=== PATIENT | female | born 1935 | race Caucasian/White ===

== ENCOUNTER → 2016-07-18 | Outpatient (CLI) | payer OTHER ==
[~2016-07-18] MED LIST: AMLO-114 PO; CALC600T9 PO; IMP/50 PO; LATA0.009 OPB; MAXZIDE PO; MECL1TAB40 PO; METO1TAB69 PO; MULTTAB58 PO; OMEP20TA PO; OXYB5TAB74 PO; PYRI100T4 PO
== END | disposition home or self-care (01) ==
LOC: C.LABSPEC 12:28
PROVIDERS: ATTEND Internal Medicine
DX: Z12.11 Encounter for screening for malignant neoplasm of colon (principal)

== ENCOUNTER → 2016-07-30 | Outpatient (CLI) | payer OTHER ==
[2016-07-30 13:00] LABS: BLOOD UREA NITROGEN 30 mg/dl (7-18); BUN/CREATININE RATIO 18.6 (10-20); CALCIUM 9.4 mg/dl (8.5-10.1); CARBON DIOXIDE 28 mmol/L (21-32); CHLORIDE 104 mmol/L (98-107); CHOLESTEROL 179 mg/dl (0-200); GLUCOSE 115 mg/dl (70-99); POTASSIUM 3.5 mmol/L (3.5-5.1); SODIUM 141 mmol/L (136-145); TRIGLYCERIDES 147 mg/dl (0-150); VERY LOW DENSITY LIPOPROT CALC 29 mg/dl
[2016-07-30 13:04] LABS: CHOLESTEROL/HDL RATIO 3.9; HDL CHOLESTEROL 46 mg/dl
[2016-07-30 13:12] LABS: ESTIMATED AVERAGE GLUCOSE 111 mg/dl; HA1C FLAG Normal (Normal)
== END | disposition home or self-care (01) ==
LOC: C.LABSPEC 12:14
PROVIDERS: ATTEND Internal Medicine
DX: I10 Essential (primary) hypertension (principal); E78.5 Hyperlipidemia, unspecified; R73.9 Hyperglycemia, unspecified; N18.9 Chronic kidney disease, unspecified

== ENCOUNTER → 2016-10-05 | Outpatient (CLI) | payer OTHER ==
[~2016-10-05] MED LIST changes: +DTR/5 PO; +METO100T44 PO; -METO1TAB69 PO; -OXYB5TAB74 PO
--- NOTE | 2016-10-06 07:55 | MAMMOGRAPHY REPORT ---
BILATERAL DIGITAL SCREENING MAMMOGRAM WITH CAD: 10/05/2016 CLINICAL HISTORY: Routine screening. Patient has no complaints. TECHNIQUE: Bilateral CC and MLO views were obtained. Current study was also evaluated with a Comput er Aided Detection (CAD) system. COMPARISON: Comparison is made to exams dated: 10/04/2015 mammogram, 09/26/2014 mammogram, 08/24/2013 mammogram, 08/11/2012 mammogram, 08/06/2011 mammogram, and 07/31/2010 mammogram - [facility]. BREAST COMPOSITION: The tissue of both breasts is almost entirely fatty. FINDINGS: There are mild to moderate vascular calcifications in the breasts. No suspicious mass, ar chitectural distortion or cluster of suspicious microcalcifications is seen. IMPRESSION: ACR BI-RADS CATEGORY 1: NEGATIVE There is no mammographic evidence of malignancy. A 1 year screening mammogram is recommended. The p atient will receive written notification of the results. Approximately 10% of breast cancers are not detected with mammography. A negative mammographic repor t should not delay biopsy if a clinically suggestive mass is present. Jacque Mcintosh M.D. ay/:10/05/2016 16:50:46 Delinquency Prevention Officer: Melanie DOHERTY(Amanda)(Bernabe), [facility] letter sent: Normal 1/2 BI-RADS Code: ACR BI-RADS Category 1: Negative
== END | disposition home or self-care (01) ==
LOC: C.MAMM 10:44
PROVIDERS: ATTEND Internal Medicine
DX: Z12.31 Encounter for screening mammogram for malignant neoplasm of breast (principal)

== ENCOUNTER → 2017-02-01 | Outpatient (CLI) | payer OTHER ==
[~2017-02-01] MED LIST changes: -DTR/5 PO; -METO100T44 PO; +METO1TAB69 PO; +OXYB5TAB74 PO
[2017-02-01 13:13] LABS: ALT/SGPT 22 U/L (12-78); AST/SGOT 17 U/L (15-37); BLOOD UREA NITROGEN 24 mg/dl (7-18); BUN/CREATININE RATIO 15.2 (10-20); CALCIUM 9.5 mg/dl (8.5-10.1); CARBON DIOXIDE 29 mmol/L (21-32); CHLORIDE 101 mmol/L (98-107); CHOLESTEROL 175 mg/dl (0-200); GLUCOSE 111 mg/dl (70-99); POTASSIUM 3.3 mmol/L (3.5-5.1); SODIUM 139 mmol/L (136-145); TRIGLYCERIDES 152 mg/dl (0-150); VERY LOW DENSITY LIPOPROT CALC 30 mg/dl
[2017-02-01 13:16] LABS: ALB/GLOB RATIO 1.1 (0.9-2); ALKALINE PHOSPHATASE 85 U/L (45-117); CHOLESTEROL/HDL RATIO 3.7; HDL CHOLESTEROL 47 mg/dl
[2017-02-01 18:34] LABS: ESTIMATED AVERAGE GLUCOSE 111 mg/dl; HA1C FLAG Normal (Normal)
== END | disposition home or self-care (01) ==
LOC: C.LABSPEC 12:28
PROVIDERS: ATTEND Internal Medicine
DX: I10 Essential (primary) hypertension (principal); E78.5 Hyperlipidemia, unspecified; R73.9 Hyperglycemia, unspecified

== ENCOUNTER → 2017-08-02 | Outpatient (CLI) | payer OTHER ==
[~2017-08-02] MED LIST changes: +DTR/5 PO; +METO100T44 PO; -METO1TAB69 PO; -OXYB5TAB74 PO
[2017-08-02 14:04] LABS: BASO % 0.7 %; BASO ABS # 0.05 K/uL (0-0.2); EOS % 5.7 %; EOS ABS # 0.42 K/uL (0-0.5); HEMATOCRIT 43.1 % (37-47); HEMOGLOBIN 14.6 g/dL (12.0-16.0); IG# 0.02 K/uL (0.00-0.02); LYMPH % 26.6 %; LYMPH ABS # 1.96 K/uL (1.2-3.4); MEAN CELL VOLUME 86.2 fL (80-100); MEAN CORPUSCULAR HEMOGLOBIN 29.2 pg (25-34); MEAN CORPUSCULAR HGB CONC 33.9 g/dl (32-36); MEAN PLATELET VOLUME 11.2 fL (7.4-10.4); MONO % 9.9 %; MONO ABS # 0.73 K/uL (0.11-0.59); NEUT % 56.8 %; PLATELET COUNT 281 K/uL (130-400); RED CELL DISTRIBUTION WIDTH CV 14.6 % (11.5-14.5); RED CELL DISTRIBUTION WIDTH SD 46.2 fL (36.4-46.3); WHITE BLOOD COUNT 7.38 K/uL (4.8-10.8)
[2017-08-02 14:26] LABS: ALBUMIN 3.8 gm/dl (3.4-5.0); ALT/SGPT 23 U/L (12-78); AST/SGOT 14 U/L (15-37); BLOOD UREA NITROGEN 30 mg/dl (7-18); CALCIUM 9.5 mg/dl (8.5-10.1); CARBON DIOXIDE 28 mmol/L (21-32); CHOLESTEROL 162 mg/dl (0-200); CREATININE 1.64 mg/dl (0.60-1.20); GLUCOSE 117 mg/dl (70-99); POTASSIUM 4.2 mmol/L (3.5-5.1); SODIUM 138 mmol/L (136-145)
[2017-08-02 14:29] LABS: ALKALINE PHOSPHATASE 96 U/L (45-117); LDL CHOLESTEROL (DIRECT) 96 mg/dl; TOTAL PROTEIN 7.6 gm/dl (6.4-8.2)
[2017-08-03 07:21] LABS: HEMOGLOBIN A1C 5.5 % (4.5-5.6)
== END | disposition home or self-care (01) ==
LOC: C.LABSPEC 12:47
PROVIDERS: ATTEND Internal Medicine
DX: M54.5 Low back pain (principal); R73.9 Hyperglycemia, unspecified; I10 Essential (primary) hypertension; E78.5 Hyperlipidemia, unspecified

== ENCOUNTER → 2017-08-02 | Outpatient (CLI) | payer OTHER ==
--- NOTE | 2017-08-02 11:48 | DIAGNOSTIC IMAGING REPORT ---
L-SPINE MIN 4 VIEWS ROUTINE HISTORY: Pain LOWER BACK PAIN, BILATERAL LEG PAIN COMPARISON: 06/17/2009 FINDINGS: Vertebral body stature is normal. Somewhat progressive degenerative disc change from L2 through S1. Several small vacuum discs are present. Slightly progressive reactive sclerosis of the vertebral endplates. Degenerative changes of posterior elements considered moderate. No evidence for subluxation. Findings consistent with an old fracture of the sacrococcygeal junction. No subluxation. IMPRESSION: 1. Rather significant degenerative intervertebral this changes from L2 through S1. 2. These findings are moderately progressive compared to the prior study 2009.. 3. No acute process. 4. Old fracture sacrococcygeal junction. The above report was generated using voice recognition software. It may contain grammatical, syntax or spelling errors. Electronically signed by: Bartolome Pretty M.D. 08/02/2017 11:46 AM Dictated Date/Time: 08/02/2017 11:44 AM
== END | disposition home or self-care (01) ==
LOC: C.RAD 10:57
PROVIDERS: ATTEND Internal Medicine
DX: M54.5 Low back pain (principal); M79.604 Pain in right leg; M79.605 Pain in left leg

== ENCOUNTER → 2017-10-06 | Outpatient (CLI) | payer OTHER ==
--- NOTE | 2017-10-06 14:23 | MAMMOGRAPHY REPORT ---
BILATERAL DIGITAL SCREENING MAMMOGRAM TOMOSYNTHESIS WITH CAD: 10/06/2017 CLINICAL HISTORY: Routine screening. Patient has no complaints. TECHNIQUE: Breast tomosynthesis in addition to standard 2D mammography was performed. Current study was also evaluated with a Computer Aided Detection (CAD) system. COMPARISON: Comparison is made to exams dated: 10/05/2016 mammogram, 10/04/2015 mammogram, 09/26/2014 m ammogram, 08/24/2013 mammogram, 08/11/2012 mammogram, and 08/06/2011 mammogram - [facility]. BREAST COMPOSITION: The tissue of both breasts is almost entirely fatty. FINDINGS: No suspicious masses, calcifications, or areas of architectural distortion are noted in ei ther breast. There has been no significant interval change compared to prior exams. Scattered bilater al benign-appearing calcifications are not significantly changed. IMPRESSION: ACR BI-RADS CATEGORY 2: BENIGN There is no mammographic evidence of malignancy. A 1 year screening mammogram is recommended. The pa tient will receive written notification of the results. Approximately 10% of breast cancers are not detected with mammography. A negative mammographic report should not delay biopsy if a clinically suggestive mass is present. Mari Osborne M.D. /:10/06/2017 11:35:45 Bed Bug Exterminator: Akanksha DOHERTY(Amanda)(M), [facility] letter sent: Normal 1/2 BI-RADS Code: ACR BI-RADS Category 2: Benign
== END | disposition home or self-care (01) ==
LOC: C.MAMM 10:53
PROVIDERS: ATTEND Internal Medicine
DX: Z12.31 Encounter for screening mammogram for malignant neoplasm of breast (principal)

== ENCOUNTER → 2017-12-02 | Outpatient (CLI) | payer OTHER ==
[~2017-12-02] MED LIST changes: +ACET-1256 PO; -AMLO-114 PO; +AMLO10TA3 PO; +ATROPINE SULFATE 0.1 MG/ML 10 ML SYR ONE; +DOBUTamine HCL 12.5 MG/ML 20 ML VIAL ONE; +LATA0.009 OP; -LATA0.009 OPB; -MAXZIDE PO; -MECL1TAB40 PO; +METOPROLOL TARTRATE 1 MG/ML VIAL ONE; +NAPR1TAB9 PO; +PERFLUTREN LIPID MICROSPHERE (DEFINITY) IV ONE; +RXC5 PO; +TRIA37.5 PO
--- NOTE | 2017-12-02 14:41 | DOBUTAMINE ECHO ---
*NOTICE TO RECEIVING LIBERTARIAN AGENCY This information is strictly Confidential and protected under [place] law. [place] law prohibits you from making any further disclosure of this information unless further disclosure is expressly permitted by the written consent of the person to whom it pertains or is authorized by law. A general authorization for the release of medical or other information is not sufficient for this purpose. Hospital accepts no responsibility if the information is made available to any other person, INCLUDING THE PATIENT. Interpretation Summary * Name: LIANG HANDY Study Date: 12/02/2017 10:53 AM BP: 142/77 mmHg * Patient Location: [facility] HR: 68 * : 1935 (M/d/yyyy) Gender: Female Height: 62 in * Age: 82 yrs Ethnicity: CA Weight: 185 lb * Ordering Physician: Caleb Bennett * Referring Physician: Caleb Bennett * Performed By: Nisha Jett RDCS * * Reason For Study: RUBIO, PRE-OP * BSA: 1.8 m2 * -- Conclusions -- * There is mild concentric left ventricular hypertrophy. * Grade I diastolic dysfunction, (abnormal relaxation pattern). * The left ventricular wall motion is normal at rest. * Normal dobutamine echocardiogram without evidence of inducible ischemia Procedure Details * DOBUTAMINE ECHO, CPT#[id number] * ECHO DOPPLER, CPT #[id number] * ECHO COLOR FLOW, CPT #[id number] * The study was technically difficult with many images being suboptimal in quality. * A contrast injection of Definity was performed to improve assessment of LV function. * Contrast was injected into an intravenous site in the left arm. * One vial of Definity ultrasound contrast was diluted in normal saline to a total volume of 10 ml. A total of '5' ml of solution was administered during imaging. * Lot # [id number] of Definity utilized for procedure. * Expiration date 10/02. * The attending nurse who injected the contrast agent was RONN ARTEAGA RN. Left Ventricular Findings with Stress * Normal dobutamine echocardiogram without evidence of inducible ischemia Left Ventricle * The left ventricle is grossly normal size. * There is mild concentric left ventricular hypertrophy. * Ejection Fraction = 60-65%. * Grade I diastolic dysfunction, (abnormal relaxation pattern). * The left ventricular wall motion is normal at rest. Right Ventricle * The right ventricle is grossly normal size. Atria * The left atrial size is normal. * Right atrial size is normal. Mitral Valve * The mitral valve is grossly normal. * Significant mitral regurgitation is absent. Tricuspid Valve * The tricuspid valve is not well visualized, but is grossly normal. * Significant tricuspid regurgitation is absent. Aortic Valve * The aortic valve is normal in structure and function. * No hemodynamically significant valvular aortic stenosis. * There is no significant aortic regurgitation. Pulmonic Valve * The pulmonic valve is not well visualized. Pericardium * There is no pericardial effusion. Stress Parameters * Normal baseline electrocardiogram. * Stress ECG: No ST changes. No arrhythmias. * Rest heart rate was '68' BPM. * Rest blood pressure was '142/77' * Maximum heart rate achieved was 130 bpm. * Maximum heart rate was 93 % of maximum age-predicted heart rate. * Maximum blood pressure was '159/46' * Total exercise time was '12:00' * Maximum Dobutamine infusion rate was '50' mcg/kg/min. * A total of 0.25 mg of intravenous Atropine was used to supplement Dobutamine for heart rate response. * Dobutamine infusion was terminated due to achieving target heart rate * A total of 5 mg of IV Metoprolol was administered to reverse Dobutamine-induced tachycardia. * The patient did not exhibit any symptoms during drug infusion. * Normal blood pressure response to exercise. * Target heart rate achieved. Left Ventricular Findings with Stress * Baseline EKG was normal There are no significant ST or T-wave changes with dobutamine infusion Baseline wall motion and ejection fraction were normal There was augmentation of all segments without development of regional wall motion abnormalities at peak dobutamine infusion Normal heart rate and blood pressure response to dobutamine MMode 2D Measurements and Calculations IVSd 1.7 cm IVSs 1.3 cm LVIDd 2.9 cm LVIDs 2.0 cm LVPWd 0.79 cm LVPWs 1.5 cm IVS/LVPW 2.2 FS 31.7 % EDV(Teich) 32.6 ml ESV(Teich) 12.6 ml EF(Teich) 61.4 % EDV(cubed) 24.8 ml ESV(cubed) 7.9 ml EF(cubed) 68.1 % % IVS thick -26.58 % % LVPW thick 89.4 % LV mass(C)d 114.8 grams LV mass(C)dI 62.1 grams/m\S\2 LV mass(C)s 84.6 grams LV mass(C)sI 45.8 grams/m\S\2 SV(Teich) 20.0 ml SI(Teich) 10.8 ml/m\S\2 SV(cubed) 16.9 ml SI(cubed) 9.1 ml/m\S\2 ACS 1.8 cm LA dimension 3.0 cm asc Aorta Diam 2.7 cm LVOT diam 1.5 cm LVOT area 1.9 cm\S\2 LVAd ap4 18.1 cm\S\2 LVLd ap4 6.8 cm EDV(MOD-sp4) 39.6 ml EDV(sp4-el) 41.3 ml LVAs ap4 9.7 cm\S\2 LVLs ap4 5.9 cm ESV(MOD-sp4) 13.7 ml ESV(sp4-el) 13.6 ml EF(MOD-sp4) 65.4 % EF(sp4-el) 67.1 % LVAd ap2 22.3 cm\S\2 LVLd ap2 6.6 cm EDV(MOD-sp2) 62.0 ml EDV(sp2-el) 63.9 ml LVAs ap2 12.0 cm\S\2 LVLs ap2 4.9 cm ESV(MOD-sp2) 23.8 ml ESV(sp2-el) 24.6 ml EF(MOD-sp2) 61.7 % EF(sp2-el) 61.5 % LVLd %diff -1.95 % EDV(MOD-bp) 49.8 ml LVLs %diff -19.34 % ESV(MOD-bp) 19.4 ml EF(MOD-bp) 61.0 % SV(MOD-sp4) 25.9 ml SI(MOD-sp4) 14.0 ml/m\S\2 SV(MOD-sp2) 38.2 ml SI(MOD-sp2) 20.7 ml/m\S\2 SV(MOD-bp) 30.4 ml SI(MOD-bp) 16.4 ml/m\S\2 SV(sp4-el) 27.7 ml SI(sp4-el) 15.0 ml/m\S\2 SV(sp2-el) 39.3 ml SI(sp2-el) 21.2 ml/m\S\2 Doppler Measurements and Calculations MV E max isidro 119.7 cm/sec MV A max isidro 129.4 cm/sec MV E/A 0.93 MV dec time 0.24 sec Ao V2 max 114.7 cm/sec Ao max PG 5.3 mmHg Ao max PG (full) 2.7 mmHg GABY(V,A) 1.3 cm\S\2 GABY(V,D) 1.3 cm\S\2 LV V1 max PG 2.6 mmHg LV V1 max 80.3 cm/sec PA V2 max 73.9 cm/sec PA max PG 2.2 mmHg
== END | disposition home or self-care (01) ==
LOC: C.CPL 10:08
PROVIDERS: ATTEND Internal Medicine
DX: R06.09 Other forms of dyspnea (principal); R94.31 Abnormal electrocardiogram [ECG] [EKG]

== ENCOUNTER 2017-12-08 11:28 | Inpatient (IN) | payer OTHER ==
[2017-11-09 14:08] VITALS: BMI 34.0
--- NOTE | 2017-11-23 14:59 | PAT Medication Instructions ---
Service Date Nov 23, 2017. Current Home Medication List Acetaminophen (Tylenol), 500 MG PO DAILY PRN for Pain Amlodipine (Norvasc), 10 MG PO QAM Calcium Carbonate-Vitamin D (Calcium + D), 1 TAB PO BID Imipramine (Tofranil), 50 MG PO HS Latanoprost (Xalatan 0.005% Oph Chanelle), 1 DROPS OP HS Metoprolol Succ (Toprol Xl) (Toprol-Xl ), 100 MG PO QAM Multiple Vitamin (Multivitamin), 1 TAB PO QAM Naproxen (Aleve), 220 MG PO DAILY PRN for Pain Omeprazole (Omeprazole), 20 MG PO QAM Oxybutynin Chloride (Ditropan), 5 MG PO BID Pyridoxine (Vitamin B6), 100 MG PO QAM Triamterene/Hctz (Dyazide 37.5MG/25MG), 1 TAB PO QAM Medication Instructions For Your Scheduled Surgery - Hold the following medications 7 days prior to surgery: Naproxen (Aleve), 220 MG PO DAILY PRN for Pain - Hold the following medications the morning of surgery: Multiple Vitamin (Multivitamin), 1 TAB PO QAM Oxybutynin Chloride (Ditropan), 5 MG PO BID Pyridoxine (Vitamin B6), 100 MG PO QAM Triamterene/Hctz (Dyazide 37.5MG/25MG), 1 TAB PO QAM - Take the following medications the morning of surgery with a sip of water: Acetaminophen (Tylenol), 500 MG PO DAILY PRN for Pain (if needed, may be taken up to four hours before surgery) Amlodipine (Norvasc), 10 MG PO QAM Metoprolol Succ (Toprol Xl) (Toprol-Xl ), 100 MG PO QAM Omeprazole (Omeprazole), 20 MG PO QAM - Take the following medications as scheduled the night before surgery: Acetaminophen (Tylenol), 500 MG PO DAILY PRN for Pain (if needed) Calcium Carbonate-Vitamin D (Calcium + D), 1 TAB PO BID Imipramine (Tofranil), 50 MG PO HS Latanoprost (Xalatan 0.005% Oph Chanelle), 1 DROPS OP HS *bring with you to the hospital Oxybutynin Chloride (Ditropan), 5 MG PO BID If you have any questions please call us at [phone] or [phone] or [phone]
[~2017-12-08] VITALS: Ht 157.5 cm; Wt 84.1 kg
[2017-12-08] VITALS (7 sets, daily range): BP systolic 107–177; BP diastolic 69–85; PULSE 62–81; TEMP 36.3–36.8; O2SAT 91–100; Ht 157.5 cm; Wt 84.1 kg
--- NOTE | 2017-12-08 09:54 | History & Physical Bridge Note ---
H&P Re-Evaluation Bridge Note: I have examined the patient, reviewed the History & Physical and in the interval since the performance of the History & Physical I have noted the following changes of clinical significance: No changes noted
--- NOTE | 2017-12-08 09:55 | History and Physical ---
History & Physical Date Dec 08, 2017. Chief Complaint Back and leg pain History of Present Illness The patient is a 82 year old female with complaints of back and leg pain Additional History Hepatic Disease: No Endocrine Disorder: No Kidney Disease: No Hypertension: Yes Heart Disease: No Bleeding Tendencies: No Infectious Diseases: No Allergies Coded Allergies: Tramadol (Verified Allergy, Severe, DIFFICULTY PAIN, SYNCOPE, PAIN IN CHEST, 11/09/17) Latex1 -Allergic Contact Dermititis (Verified Allergy, Unknown, RASH, BLISTERS, 11/09/17) Penicillins (Verified Allergy, Unknown, FAMILY HX, 11/09/17) Lisinopril (Verified Adverse Reaction, Intermediate, COUGH, 11/09/17) Home Medications Scheduled Amlodipine (Norvasc), 10 MG PO QAM Calcium Carbonate-Vitamin D (Calcium + D), 1 TAB PO BID Imipramine (Tofranil), 50 MG PO HS Latanoprost (Xalatan 0.005% Oph Chanelle), 1 DROPS OP HS Metoprolol Succ (Toprol Xl) (Toprol-Xl ), 100 MG PO QAM Multiple Vitamin (Multivitamin), 1 TAB PO QAM Omeprazole (Omeprazole), 20 MG PO QAM Oxybutynin Chloride (Ditropan), 5 MG PO BID Pyridoxine (Vitamin B6), 100 MG PO QAM Triamterene/Hctz (Dyazide 37.5MG/25MG), 1 TAB PO QAM Scheduled PRN Acetaminophen (Tylenol), 500 MG PO DAILY PRN for Pain Naproxen (Aleve), 220 MG PO DAILY PRN for Pain Physical Examination Skin: warm/dry, no rash Eyes: normal inspection, EOMI, sclerae normal ENT: normal ENT inspection, pharynx normal Head: normocephalic, atraumatic Neck: supple, no adenopathy, trachea midline Respiratory/Chest: lungs clear, normal breath sounds, no respiratory distress Cardiovascular: regular rate, rhythm, no edema, no murmur Abdomen / GI: normal bowel sounds, non tender Back: normal inspection Extremities: normal inspection, normal range of motion Neurologic/Psych: no motor/sensory deficits, alert, normal reflexes, oriented x 3 Diagnosis Lumbar spinal stenosis with neurogenic claudication Plan of Treatment Lumbar decompression and fusion L2-L5 with possible L5-S1
[~2017-12-08 11:28] MED LIST changes: +ACETAMINOPHEN 500 MG TAB PO SCH; -ATROPINE SULFATE 0.1 MG/ML 10 ML SYR ONE; +ATROPINE SULFATE 0.1 MG/ML 5ML SYR IV PRN; +CLINDAMYCIN IV 600 MG in DEXTROSE 5% ADD-VANTAGE 50ML 50 ML IV SCH; +CLINDAMYCIN PHOS 150 MG/ML 2 ML VIAL IV SCH; +CeleBREX 200 MG CAP PO SCH; -DOBUTamine HCL 12.5 MG/ML 20 ML VIAL ONE; +EpHEDrine SULFATE INJ 50 MG/ML AMP IV PRN; +FENTANYL CITRATE INJ 50 MCG/1 ML 2 ML VIAL IV PRN; +GABAPENTIN 300 MG CAP PO SCH; +HYDROmorphone INJ 0.5 MG/0.5 ML SYR IV PRN; +LACTATED RINGER'S 1000ML 1,000 ML IV SCH; -METOPROLOL TARTRATE 1 MG/ML VIAL ONE; +ONDANSETRON INJ 2 MG/ML 2 ML VIAL IV PRN; -PERFLUTREN LIPID MICROSPHERE (DEFINITY) IV ONE; +PHENYLEPHRINE 100MCG/ML 5ML SYR IV PRN; -RXC5 PO
[2017-12-08] MEDS ORDERED: FENTANYL CITRATE INJ 50 MCG/1 ML 2 ML VIAL ONE ×2 (11:29→14:54)
[2017-12-08] MEDS ORDERED: GLYCOPYRROLATE INJ 0.2 MG/ML VIAL ONE (11:30)
[2017-12-08] MEDS ORDERED: ROCURONIUM BROMIDE 10 MG/ML 5 ML VIAL ONE (11:30)
[2017-12-08] MEDS ORDERED: ONDANSETRON INJ 2 MG/ML 2 ML VIAL ONE (11:30)
[2017-12-08] MEDS ORDERED: PROPOFOL IV EMULSION 10 MG/ML 20 ML VIAL ONE (11:30)
[2017-12-08] MEDS ORDERED: NEOSTIGMINE METHYLSULFATE 1 MG/ML 10ML VIAL ONE (11:30)
[2017-12-08] MEDS ORDERED: LIDOCAINE HCL 2% 2 ML VIAL (20MG/ML) ONE (11:30)
[2017-12-08] MEDS ORDERED: DEXAMETHASONE SOD INJ 4 MG/ML VIAL ONE (11:30)
[2017-12-08] MEDS ORDERED: BACITRACIN 50000 UNIT VIAL ONE (12:38)
[2017-12-08] MEDS ORDERED: SODIUM CHLORIDE 0.9% PF 50 ML VIAL ONE (12:38)
[2017-12-08] MEDS ORDERED: BUPIVACAINE LIPOSOME 1/3% 266 MG/20 ML VIAL ONE (12:38)
[2017-12-08] MEDS ORDERED: BUPIVACAINE/EPINEPHRINE 0.5% MPF 1:200,000 30 ML VIAL ONE (12:38)
[2017-12-08] MEDS ORDERED: BUPIVACAINE 0.5 % 5 MG/1 ML PF 10ML VIAL ONE (12:38)
[2017-12-08] MEDS ORDERED: FLOSEAL HEMOSTATIC MATRIX 10ML TOP ONE (15:03)
--- NOTE | 2017-12-08 15:13 | [facility] Operative Report ---
Operative Report Operative Date Dec 08, 2017. Pre-Operative Diagnosis Lumbar spinal stenosis with neurogenic claudication Post-Operative Diagnosis Lumbar spinal stenosis with neurogenic claudication Procedure(s) Performed 1. Lumbar decompression medial facetectomy foraminotomy L2-3 L3-4 L4-5. #2 posterior spinal fusion L2-3 L3-4 L4-5. #3 placement posterior segmental instrumentation L2-3 L3-4 L4-5. #4 placement of local autograft in the posterior gutters. #5 placement of infuse collagen sponge combined with mass graft in the posterior lateral gutters. Surgeon Dr. Umana Lead Man Over All Dies In Pattern Shop Surgeon(s) Poonam Arshad Pa-C Estimated Blood Loss 250 Findings Severe spinal stenosis with herniated nucleus pulposus to 3 on the left Description of Procedure Patient was met with preoperatively case discussed all questions addressed. After informed consent obtained patient was taken to the operative suite underwent intubation placed in a prone position on the Jj table on top of the Da frame. All bony prominences well-padded eyes inspected to ensure no external pressure placed upon the. This point the lumbar spine was prepped and draped in normal sterile fashion. Sharp dissection with the assistance Bovie cautery was performed on down to and exposing the lamina and transverse processes of L2 L3-L4-L5 bilaterally. From a caudal to cephalad fashion complete laminectomy of L4 L3 and L2 is performed addressing severe lateral recess and foraminal disease. This also include partial discectomy of 2 3 on the left. At this complete pedicle screws were placed in L2 L3-L4-L5 bilaterally with the assistance of fluoroscopy and the purposes chapincito locked in position. I also placed a cross-link. Transverse processes of L2 L3-L4-L5 then burred to subcortical bleeding bone. Infuse collagen sponge master graft local autograft placed in posterior gutters. Approximately 100 cc of Exparel injected in the soft tissues and musculature. A 15 round [place] drain inserted. Incision then closed with 1 Vicryl fascia 2-0 Vicryl subtends a 4 Monocryl fashion closure Steri-Strips sterile dressings placed. Patient will continue PACU stable condition. Please note Poonam Devries was present throughout the entire procedure involved in patient positioning complex portions of the surgery and fashion closure. I attest to the content of the Intraoperative Record and any orders documented therein. Any exceptions are noted below.
[2017-12-08] MEDS ORDERED: ALUMINUM/MAGNESIUM SUSP 30 ML UDC PO PRN (15:15)
[2017-12-08] MEDS ORDERED: METOCLOPRAMIDE HCL INJ 5 MG/ML 2 ML VIAL IV PRN (15:15)
[2017-12-08] MEDS ORDERED: ACETAMINOPHEN IV 100 ML IV PRN (15:15)
[2017-12-08] MEDS ORDERED: hydrOXYzine HCL 25 MG TAB PO PRN (15:15)
[2017-12-08] MEDS ORDERED: FAMOTIDINE 20 MG TAB PO PRN (15:15)
[2017-12-08] MEDS ORDERED: PROMETHAZINE HCL INJ 12.5 MG in SODIUM CHLORIDE 0.9% 50ML 50 ML IV PRN (15:15)
[2017-12-08] MEDS ORDERED: DO NOT ADMINISTER PNEUMOCOCCAL VACCINE PRN (15:15)
[2017-12-08] MEDS ORDERED: BISACODYL 10 MG SUPP PR PRN (15:15)
[2017-12-08] MEDS ORDERED: NALOXONE HCL 0.4 MG/1 ML VIAL/CARP IV PRN (15:15)
[2017-12-08] MEDS ORDERED: MAGNESIUM HYDROXIDE SUSP 30 ML UDC PO PRN (15:15)
[2017-12-08] MEDS ORDERED: LORAZEPAM INJ 0.5 MG in SYRINGE 0 ML IV PRN (15:15)
[2017-12-08] MEDS ORDERED: ACETAMINOPHEN 500 MG TAB PO PRN (15:15)
[2017-12-08] MEDS ORDERED: SOD PHOSPHATE/SOD BIPHOSPHATE ENEMA 132 ML BTL PR PRN (15:15)
[2017-12-08] MEDS ORDERED: LORAZEPAM 0.5 MG TAB PO PRN (15:15)
[2017-12-08] MEDS ORDERED: DO NOT ADMINISTER FLU VACCINE PRN (15:15)
[2017-12-08] MEDS ORDERED: ONDANSETRON INJ 2 MG/ML 2 ML VIAL IV PRN (15:15)
--- NOTE | 2017-12-08 15:27 | DIAGNOSTIC IMAGING REPORT ---
INTRAOPERATIVE LUMBAR SPINE 3 VIEWS CLINICAL HISTORY: L2-5 DECOMPRESSION/FUSION COMPARISON STUDY: MRI performed September 2017 FINDINGS: 3 intraoperative fluoroscopic spot images are provided for interpretation. 17 seconds of fluoroscopic time was utilized. There are postsurgical changes of a spinal decompression and posterior pedicle screw fusion and fixation at the L2-L5 levels. There is a grade 1 spondylolisthesis of L3 on L4. IMPRESSION: Intraoperative fluoroscopic spot images reveal an L2 through L5 spinal decompression and fusion. Electronically signed by: Morales Bello M.D. 12/08/2017 3:25 PM Dictated Date/Time: 12/08/2017 3:24 PM
--- NOTE | 2017-12-08 16:31 | Anesthesiology Progress Note ---
Anesthesia Post Op Note Date & Time Dec 08, 2017 at 16:31 Vital Signs Pain Intensity: 0 Vital Signs Past 12 Hours Date Time Temp Pulse Resp B/P (MAP) Pulse Ox O2 Delivery O2 Flow Rate FiO2 12/08/17 16:15 36.2 64 14 147/78 100 Nasal Cannula 4 12/08/17 16:05 64 16 129/66 100 Nasal Cannula 4 12/08/17 15:55 66 13 131/66 100 Oxymask 10 12/08/17 15:45 73 15 127/81 100 Oxymask 10 12/08/17 15:39 36 78 15 103/72 100 Oxymask 10 12/08/17 12:07 36.8 81 20 177/85 95 Room Air Notes Mental Status: alert / awake / arousable, participated in evaluation Pt Amnestic to Procedure: Yes Nausea / Vomiting: adequately controlled Pain: adequately controlled Airway Patency, RR, SpO2: stable & adequate BP & HR: stable & adequate Hydration State: stable & adequate Anesthetic Complications: no major complications apparent
[2017-12-08] MEDS ORDERED: NURSING VERBAL MED ORDER ONE ×2 (17:15→21:30)
[2017-12-08] MEDS ORDERED: HYDROmorphone INJ 0.5 MG/0.5 ML SYR IV PRN (17:30)
--- NOTE | 2017-12-08 18:18 | Medical Consult ---
Consultation Date of Consultation: Dec 08, 2017. Attending Physician: Servando Umana D.O. History of Present Illness 82 yo female who is hospitalized after having multiple procedures done on her back. These included: -Lumbar decompression medial facetectomy foraminotomy L2-3 L3-4 L4-5. -posterior spinal fusion L2-3 L3-4 L4-5. -placement posterior segmental instrumentation L2-3 L3-4 L4-5. -placement of local autograft in the posterior gutters. placement of infuse collagen sponge combined with mass graft in the posterior lateral gutters. Patient reports feeling well and has no complaints. Past Medical/Surgical History Her medical problems include: 1. H/O Left and Right Cataract 2. Arterial hypertension. 3. Osteoarthritis. 4. Hypercholesterolemia. 5. Hyperglycemia. 6. Chronic kidney disease. 7. History of peptic ulcer disease. 8. Chronic tinnitus. 9. Umbilical hernia. 10. Chronic leg edema. Social History Smoking Status: Never Smoker Allergies Coded Allergies: Tramadol (Verified Allergy, Severe, DIFFICULTY PAIN, SYNCOPE, PAIN IN CHEST, 12/08/17) Latex1 -Allergic Contact Dermititis (Verified Allergy, Unknown, RASH, BLISTERS, 12/08/17) Penicillins (Verified Allergy, Unknown, FAMILY HX, 12/08/17) Lisinopril (Verified Adverse Reaction, Intermediate, COUGH, 12/08/17) Current Inpatient Medications Current Inpatient Medications Medications (Trade) Dose Ordered Sig/Eva Route Start Time Stop Time Status Last Admin Dose Admin Clindamycin Phosphate (Cleocin Iv) 600 mg PREOP IV 12/08/17 06:00 12/08/17 18:00 12/08/17 12:59 600 MG Lactated Ringer's 1,000 ml @ 15 mls/hr Q24H IV 12/08/17 06:00 12/09/17 05:59 12/08/17 12:50 15 MLS/HR Acetaminophen (Tylenol Tab) 1,000 mg PREOP PO 12/08/17 06:00 12/08/17 18:00 12/08/17 12:36 1,000 MG Celecoxib (CeleBREX CAP) 200 mg PREOP PO 12/08/17 06:00 12/08/17 18:00 12/08/17 12:35 200 MG Gabapentin (Neurontin Cap) 300 mg PREOP PO 12/08/17 06:00 12/08/17 18:00 12/08/17 12:35 300 MG Clindamycin Phosphate 600 mg/ Dextrose 50 ml @ 100 mls/hr PREOP IV 12/08/17 06:00 12/09/17 05:59 Clindamycin Phosphate 600 mg/ Dextrose 54 ml @ 100 mls/hr Q8H IV 12/08/17 22:00 12/09/17 06:33 Promethazine HCl 12.5 mg/Sodium Chloride 50.5 ml @ 202 mls/hr Q6H PRN IV 12/08/17 15:15 01/07/18 15:14 Ondansetron HCl (Zofran Inj) 4 mg Q6H PRN IV 12/08/17 15:15 01/07/18 15:14 Metoclopramide HCl (Reglan Inj) 10 mg Q6H PRN IV 12/08/17 15:15 01/07/18 15:14 Lorazepam (Ativan Tab) 0.5 mg Q8H PRN PO 12/08/17 15:15 01/07/18 15:14 Lorazepam 0.5 mg/ Syringe 0.25 ml @ 1 mls/min Q8H PRN IV 12/08/17 15:15 01/07/18 15:14 Pneumococcal Polysaccharide Vaccine 1 ea PRN PRN N/A 12/08/17 15:15 01/07/18 15:14 Influenza Virus Vacc Triv Types A&B 1 ea PRN PRN N/A 12/08/17 15:15 01/07/18 15:14 Polyethylene (Miralax Powder Packet) 17 gm Q6 PO 12/10/17 06:00 01/09/18 05:59 Bisacodyl (Dulcolax Supp) 10 mg DAILY PRN [place] 12/08/17 15:15 01/07/18 15:14 Magnesium Hydroxide (Milk Of Magnesia Susp) 30 ml DAILY PRN PO 12/08/17 15:15 01/07/18 15:14 Sodium Chloride 1,000 ml @ 150 mls/hr Q6H40M IV 12/08/17 17:00 01/07/18 16:59 Acetaminophen (Tylenol Tab) 1,000 mg Q8H PRN PO 12/08/17 15:15 01/07/18 15:14 Acetaminophen 100 ml @ 400 mls/hr Q8H PRN IV 12/08/17 15:15 01/07/18 15:14 Naloxone HCl (Narcan Inj) 0.1 mg Q5M PRN IV 12/08/17 15:15 01/07/18 15:14 Senna/Docusate Sodium (Senokot S Tab) 2 tab HS PO 12/08/17 21:00 01/07/18 20:59 Sodium Biphosphate/ Sodium Phosphate (Fleet Enema) 132 ml ONE PRN [place] 12/08/17 15:15 01/07/18 15:14 Hydroxyzine HCl (Vistaril Tab) 25 mg Q8H PRN PO 12/08/17 15:15 01/07/18 15:14 Al Hydroxide/Mg Hydroxide (Maalox Susp) 30 ml Q6H PRN PO 12/08/17 15:15 01/07/18 15:14 Famotidine (Pepcid Tab) 20 mg Q12 PRN PO 12/08/17 15:15 01/07/18 15:14 Diphenhydramine HCl (Benadryl Cap) 25 mg Q6H PRN PO 12/08/17 15:15 01/07/18 15:14 Amlodipine Besylate (Norvasc Tab) 10 mg QAM PO 12/09/17 09:00 01/08/18 08:59 Imipramine HCl (Tofranil Tab) 50 mg HS PO 12/08/17 21:00 01/07/18 20:59 Latanoprost (Xalatan Oph Soln) 1 drops HS OP 12/08/17 21:00 01/07/18 20:59 Metoprolol Succinate (Toprol Xl Tab) 100 mg QAM PO 12/09/17 09:00 01/08/18 08:59 Multivitamins (Multivitamin Tab) 1 tab QAM PO 12/09/17 09:00 01/08/18 08:59 Oxybutynin Chloride (Ditropan Tab) 5 mg BID PO 12/08/17 21:00 01/07/18 20:59 Triamterene/HCTZ (Dyazide 37.5/25 Mg Cap) 1 cap QAM PO 12/09/17 09:00 01/08/18 08:59 Pantoprazole Sodium (Protonix Tab) 40 mg QAM PO 12/09/17 09:00 01/08/18 08:59 Hydromorphone HCl (Dilaudid Inj) 0.5-1mg prn moder... Q3H PRN IV 12/08/17 17:30 12/22/17 17:29 Oxycodone HCl (Roxicodone Immediate Rel Tab) 5-10mg prn moderate to sev... Q4H PRN PO 12/08/17 17:30 12/22/17 17:29 Review of Systems Constitutional: No fever Eyes: No worsening of vision ENT: No hearing loss Respiratory: No cough Cardiovascular: No chest pain Abdomen: No pain Genitourinary - Female: No dysuria Neurologic: No paralysis Psychiatric: No depression symptoms Endocrine: No fatigue Hematologic / Lymphatic: No abnormal bleeding/bruising Integumentary: No rash Allergic / Immunologic: No environmental allergies Physical Exam Date Time Temp Pulse Resp B/P (MAP) Pulse Ox O2 Delivery O2 Flow Rate FiO2 12/08/17 17:30 36.3 62 16 111/69 (83) 97 Nasal Cannula 2.0 12/08/17 17:02 36.3 63 16 131/78 (95) 98 Nasal Cannula 2.0 12/08/17 16:30 100 Nasal Cannula 2.0 12/08/17 16:30 100 Nasal Cannula 2.0 12/08/17 16:30 36.4 64 16 124/80 (95) 100 Nasal Cannula 2.0 12/08/17 16:15 36.2 64 14 147/78 100 Nasal Cannula 4 12/08/17 16:05 64 16 129/66 100 Nasal Cannula 4 12/08/17 15:55 66 13 131/66 100 Oxymask 10 12/08/17 15:45 73 15 127/81 100 Oxymask 10 12/08/17 15:39 36 78 15 103/72 100 Oxymask 10 12/08/17 12:07 36.8 81 20 177/85 95 Room Air General Appearance: WD/WN Head: normocephalic Eyes: normal inspection ENT: normal ENT inspection Neck: supple Respiratory/Chest: chest non-tender, lungs clear Cardiovascular: regular rate, rhythm, no edema Abdomen/GI: normal bowel sounds, non tender, soft Extremities/Musculoskelatal: no pedal edema Neurologic/Psych: alert, oriented x 3 Skin: normal color Lymphatic: no adenopathy Assessment & Plan 82 yo female who is hospitalized for Lumbar decompression medial facetectomy foraminotomy L2-3 L3-4 L4-5 (and other procedures noted below). Consult was called for medical management. Essential hypertension. Patient hash/o hypertension. However, this is controlled Will continue home medicine. Patient will be on dyazide and amlodpine in AM Hyperglycemia with normal hemoglobin A1c. Last check in July. No need for insulin Chronic kidney disease stage IIIa, stable. will monitor BMP. Stress urinary incontinence continue home meds S/P -Lumbar decompression medial facetectomy foraminotomy L2-3 L3-4 L4-5. -posterior spinal fusion L2-3 L3-4 L4-5. -placement posterior segmental instrumentation L2-3 L3-4 L4-5. -placement of local autograft in the posterior gutters. placement of infuse collagen sponge combined with mass graft in the posterior lateral gutters. Pain management and discharged will be determined by primary service. Thank you for allowing us to management patient. Will continue to follow. May sign off in AM.
[2017-12-08] MEDS: OXYBUTYNIN CHLORIDE 5 MG TAB PO SCH (20:41)
[2017-12-08] MEDS: CLINDAMYCIN IV 600 MG in DEXTROSE 5% 50ML 50 ML IV SCH (20:41)
[2017-12-08] MEDS: LATANOPROST 0.005% OP SOLN 2.5 ML BTL OP SCH (20:41)
[2017-12-08] MEDS: SODIUM CHLORIDE 0.9% 1000ML 1,000 ML IV SCH (20:41)
[2017-12-08] MEDS: DOCUSATE SODIUM/SENNA 50/8.6MG TAB PO SCH (20:42)
[2017-12-08] MEDS: IMIPRAMINE HCL 25 MG TAB PO SCH (20:42)
[2017-12-08] MEDS ORDERED: IMIPRAMINE HCL 50 MG TAB PO SCH (21:00)
[2017-12-09] MEDS: SODIUM CHLORIDE 0.9% 1000ML 1,000 ML IV SCH (03:05)
[2017-12-09 03:10] VITALS: BP 124/77; PULSE 71; TEMP 36.5; O2SAT 92
[2017-12-09] MEDS ORDERED: NURSING DECISION MEDICATION ORDER SCH (05:15)
[2017-12-09 05:39] LABS: HEMOGLOBIN 10.4 g/dL (12.0-16.0); IG# 0.01 K/uL (0.00-0.02); LYMPH % 9.8 %; LYMPH ABS # 0.94 K/uL (1.2-3.4); MEAN CELL VOLUME 86.4 fL (80-100); MEAN CORPUSCULAR HGB CONC 33.5 g/dl (32-36); MEAN PLATELET VOLUME 9.5 fL (7.4-10.4); MONO % 8.2 %; MONO ABS # 0.79 K/uL (0.11-0.59); NEUT % 81.9 %; NEUT ABS # 7.84 K/uL (1.4-6.5); PLATELET COUNT 197 K/uL (130-400); RED CELL DISTRIBUTION WIDTH CV 15.2 % (11.5-14.5); RED CELL DISTRIBUTION WIDTH SD 47.9 fL (36.4-46.3); WHITE BLOOD COUNT 9.58 K/uL (4.8-10.8)
[2017-12-09] MEDS: CLINDAMYCIN IV 600 MG in DEXTROSE 5% 50ML 50 ML IV SCH (05:39)
[2017-12-09] MEDS ORDERED: OXYCODONE HCL IR 5 MG TAB (IMMEDIATE RELEASE) PO PRN (06:00)
[2017-12-09] MEDS ORDERED: HYDROmorphone INJ 0.5 MG/0.5 ML SYR IV PRN (06:00)
[2017-12-09 06:12] LABS: CALCIUM 8.3 mg/dl (8.5-10.1); CREATININE 1.29 mg/dl (0.60-1.20); POTASSIUM 3.6 mmol/L (3.5-5.1)
[2017-12-09 07:30] VITALS: BP 111/69; PULSE 72; TEMP 36.7; O2SAT 91
[2017-12-09] MEDS: PANTOprazole SOD 40 MG TAB PO SCH (08:44)
[2017-12-09] MEDS: METOPROLOL SUCC 50MG EXT REL TAB PO SCH (08:44)
[2017-12-09] MEDS: OXYBUTYNIN CHLORIDE 5 MG TAB PO SCH ×2 (08:44→21:23)
[2017-12-09] MEDS: TRIAMTERENE/HCTZ 37.5/25MG CAP PO SCH (08:44)
[2017-12-09] MEDS: AMLODIPINE BESYLATE 5 MG TAB PO SCH (08:45)
[2017-12-09] MEDS: MULTIVITAMIN TAB PO SCH (08:45)
--- NOTE | 2017-12-09 09:37 | Anesthesiology Progress Note ---
Anesthesia Post Op Note Date & Time Dec 09, 2017 at 09:37 Vital Signs Pain Intensity: 0 Vital Signs Past 12 Hours Date Time Temp Pulse Resp B/P (MAP) Pulse Ox O2 Delivery O2 Flow Rate FiO2 12/09/17 07:30 36.7 72 16 111/69 (83) 91 Room Air 12/09/17 07:23 Room Air 12/09/17 03:10 36.5 71 16 124/77 (93) 92 Room Air 12/08/17 23:25 Room Air 12/08/17 22:46 36.3 65 16 113/71 (85) 91 Room Air Notes Mental Status: alert / awake / arousable, participated in evaluation Pt Amnestic to Procedure: Yes Nausea / Vomiting: adequately controlled Pain: adequately controlled Airway Patency, RR, SpO2: stable & adequate BP & HR: stable & adequate Hydration State: stable & adequate Anesthetic Complications: no major complications apparent
[2017-12-09 11:25] VITALS: BP 118/75; PULSE 61; TEMP 36.7; O2SAT 93
--- NOTE | 2017-12-09 14:26 | Progress Note ---
Progress Note Date of Service Dec 09, 2017. Progress Note Back pain is controlled leg symptoms markedly improved vital signs stable [place] drain decreasing probably. On exam she is in the chair at bedside is good strength testing appears comfortable assessment status post lumbar depression fusion per plan at this time hoping for rehab significant placement the next day or so.
[2017-12-09 15:03] VITALS: BP 93/61; PULSE 75; TEMP 36.7; O2SAT 92
[2017-12-09] MEDS: ACETAMINOPHEN 500 MG TAB PO PRN ×2 (15:29→21:31)
[2017-12-09 15:30] VITALS: BP 114/72
--- NOTE | 2017-12-09 15:51 | Hospitalist Progress Note ---
Hospitalist Progress Note Date of Service Dec 09, 2017. Subjective Pt evaluation today including: conversation w/ patient, conversation w/ family , physical exam, chart review, lab review, review of studies, review of inpatient medication list Patient seen and evaluated. No acute events overnight. Patient is sitting in bedside chair. No complaints. Pain is controlled. Tolerating diet. States she required blood transfusion after her knee replacement. Currently Hgb stable but will monitor. Vitals stable. Renal function is better than baseline. Will continue to monitor. Constitutional: No fever, No chills Respiratory: No cough, No shortness of breath Cardiovascular: No chest pain Abdomen: No pain, No nausea, No vomiting, No diarrhea, No constipation Musculoskeletal: No swelling, No calf pain Female : No dysuria Heme: No abnormal bleeding/bruising Medications Current Inpatient Medications Medications (Trade) Dose Ordered Sig/Eva Route Start Time Stop Time Status Last Admin Dose Admin Promethazine HCl 12.5 mg/Sodium Chloride 50.5 ml @ 202 mls/hr Q6H PRN IV 12/08/17 15:15 01/07/18 15:14 Ondansetron HCl (Zofran Inj) 4 mg Q6H PRN IV 12/08/17 15:15 01/07/18 15:14 Metoclopramide HCl (Reglan Inj) 10 mg Q6H PRN IV 12/08/17 15:15 01/07/18 15:14 Lorazepam (Ativan Tab) 0.5 mg Q8H PRN PO 12/08/17 15:15 01/07/18 15:14 Lorazepam 0.5 mg/ Syringe 0.25 ml @ 1 mls/min Q8H PRN IV 12/08/17 15:15 01/07/18 15:14 Pneumococcal Polysaccharide Vaccine 1 ea PRN PRN N/A 12/08/17 15:15 01/07/18 15:14 Influenza Virus Vacc Triv Types A&B 1 ea PRN PRN N/A 12/08/17 15:15 01/07/18 15:14 Polyethylene (Miralax Powder Packet) 17 gm Q6 PO 12/10/17 06:00 01/09/18 05:59 Bisacodyl (Dulcolax Supp) 10 mg DAILY PRN [place] 12/08/17 15:15 01/07/18 15:14 Magnesium Hydroxide (Milk Of Magnesia Susp) 30 ml DAILY PRN PO 12/08/17 15:15 01/07/18 15:14 Acetaminophen (Tylenol Tab) 1,000 mg Q8H PRN PO 12/08/17 15:15 01/07/18 15:14 Acetaminophen 100 ml @ 400 mls/hr Q8H PRN IV 12/08/17 15:15 01/07/18 15:14 Naloxone HCl (Narcan Inj) 0.1 mg Q5M PRN IV 12/08/17 15:15 01/07/18 15:14 Senna/Docusate Sodium (Senokot S Tab) 2 tab HS PO 12/08/17 21:00 01/07/18 20:59 12/08/17 20:42 2 TAB Sodium Biphosphate/ Sodium Phosphate (Fleet Enema) 132 ml ONE PRN [place] 12/08/17 15:15 01/07/18 15:14 Hydroxyzine HCl (Vistaril Tab) 25 mg Q8H PRN PO 12/08/17 15:15 01/07/18 15:14 Al Hydroxide/Mg Hydroxide (Maalox Susp) 30 ml Q6H PRN PO 12/08/17 15:15 01/07/18 15:14 Famotidine (Pepcid Tab) 20 mg Q12 PRN PO 12/08/17 15:15 01/07/18 15:14 Diphenhydramine HCl (Benadryl Cap) 25 mg Q6H PRN PO 12/08/17 15:15 01/07/18 15:14 Amlodipine Besylate (Norvasc Tab) 10 mg QAM PO 12/09/17 09:00 01/08/18 08:59 12/09/17 08:45 10 MG Latanoprost (Xalatan Oph Soln) 1 drops HS OP 12/08/17 21:00 01/07/18 20:59 12/08/17 20:41 1 DROPS Metoprolol Succinate (Toprol Xl Tab) 100 mg QAM PO 12/09/17 09:00 01/08/18 08:59 12/09/17 08:44 100 MG Multivitamins (Multivitamin Tab) 1 tab QAM PO 12/09/17 09:00 01/08/18 08:59 12/09/17 08:45 1 TAB Oxybutynin Chloride (Ditropan Tab) 5 mg BID PO 12/08/17 21:00 01/07/18 20:59 12/09/17 08:44 5 MG Triamterene/HCTZ (Dyazide 37.5/25 Mg Cap) 1 cap QAM PO 12/09/17 09:00 01/08/18 08:59 12/09/17 08:44 1 CAP Pantoprazole Sodium (Protonix Tab) 40 mg QAM PO 12/09/17 09:00 01/08/18 08:59 12/09/17 08:44 40 MG Hydromorphone HCl (Dilaudid Inj) 0.5-1mg prn moder... Q3H PRN IV 12/08/17 17:30 12/22/17 17:29 Oxycodone HCl (Roxicodone Immediate Rel Tab) 5-10mg prn moderate to sev... Q4H PRN PO 12/08/17 17:30 12/22/17 17:29 Imipramine HCl (Tofranil Tab) 50 mg HS PO 12/08/17 21:00 01/07/18 20:59 12/08/17 20:42 50 MG Objective Vital Signs Date Time Temp Pulse Resp B/P (MAP) Pulse Ox O2 Delivery O2 Flow Rate FiO2 12/09/17 15:03 36.7 75 18 93/61 (72) 92 Room Air 12/09/17 11:25 36.7 61 16 118/75 (89) 93 Room Air 12/09/17 07:30 36.7 72 16 111/69 (83) 91 Room Air 12/09/17 07:23 Room Air 12/09/17 03:10 36.5 71 16 124/77 (93) 92 Room Air 12/08/17 23:25 Room Air 12/08/17 22:46 36.3 65 16 113/71 (85) 91 Room Air 12/08/17 19:30 36.4 69 16 107/72 (84) 98 Nasal Cannula 2.0 12/08/17 18:30 36.4 65 16 116/76 (89) 97 Nasal Cannula 2.0 12/08/17 17:30 36.3 62 16 111/69 (83) 97 Nasal Cannula 2.0 12/08/17 17:02 36.3 63 16 131/78 (95) 98 Nasal Cannula 2.0 12/08/17 16:30 100 Nasal Cannula 2.0 12/08/17 16:30 100 Nasal Cannula 2.0 12/08/17 16:30 36.4 64 16 124/80 (95) 100 Nasal Cannula 2.0 12/08/17 16:15 36.2 64 14 147/78 100 Nasal Cannula 4 12/08/17 16:05 64 16 129/66 100 Nasal Cannula 4 12/08/17 15:55 66 13 131/66 100 Oxymask 10 12/08/17 15:45 73 15 127/81 100 Oxymask 10 12/08/17 15:39 36 78 15 103/72 100 Oxymask 10 Physical Exam General Appearance: WD/WN, no apparent distress Eyes: sclerae normal ENT: hearing grossly normal Neck: supple, no JVD, trachea midline Respiratory/Chest: lungs clear, normal breath sounds, no respiratory distress, no accessory muscle use Cardiovascular: regular rate, rhythm Abdomen: normal bowel sounds, non tender, soft Extremities: no pedal edema, no calf tenderness Neurologic/Psychiatric: alert, oriented x 3 Skin: normal color, warm/dry Laboratory Results Last 24 Hours Test 12/09/17 05:27 White Blood Count 9.58 K/uL Red Blood Count 3.59 M/uL Hemoglobin 10.4 g/dL Hematocrit 31.0 % Mean Corpuscular Volume 86.4 fL Mean Corpuscular Hemoglobin 29.0 pg Mean Corpuscular Hemoglobin Concent 33.5 g/dl Platelet Count 197 K/uL Mean Platelet Volume 9.5 fL Neutrophils (%) (Auto) 81.9 % Lymphocytes (%) (Auto) 9.8 % Monocytes (%) (Auto) 8.2 % Eosinophils (%) (Auto) 0.0 % Basophils (%) (Auto) 0.0 % Neutrophils # (Auto) 7.84 K/uL Lymphocytes # (Auto) 0.94 K/uL Monocytes # (Auto) 0.79 K/uL Eosinophils # (Auto) 0.00 K/uL Basophils # (Auto) 0.00 K/uL RDW Standard Deviation 47.9 fL RDW Coefficient of Variation 15.2 % Immature Granulocyte % (Auto) 0.1 % Immature Granulocyte # (Auto) 0.01 K/uL Sodium Level 140 mmol/L Potassium Level 3.6 mmol/L Chloride Level 106 mmol/L Carbon Dioxide Level 26 mmol/L Anion Gap 8.0 mmol/L Blood Urea Nitrogen 22 mg/dl Creatinine 1.29 mg/dl Est Creatinine Clear Calc Drug Dose 34.4 ml/min Estimated GFR () 45.0 Estimated GFR (Non- 38.8 BUN/Creatinine Ratio 17.1 Random Glucose 131 mg/dl Calcium Level 8.3 mg/dl Assessment and Plan 82 yo female who is hospitalized for Lumbar decompression medial facetectomy foraminotomy L2-3 L3-4 L4-5 (and other procedures noted below). Consult was called for medical management. Lumbar Decompression/Fusion on 12/08: - Pain management, PT/OT, IVF, DVT Prophylaxis, Surgical Management per primary - Reports requiring blood transfusion with knee replacement - will monitor H&H - currently stable without need for intervention will watch HTN: STABLE - Norvasc 10 mg daily, Toprol XL 100 mg daily, Diazide 1 tab daily Reported H/O Hyperglycemia - Normal A1c: - A1c 5.5 - can monitor with daily labs - no intervention necessary CKD Stage III: STABLE - Baseline 1.6-1.7 - Currently better than baseline at 1.29 - making urine and has good output Chronic Stress Urinary Incontinence: - Oxybutynin 5 mg BID Hospitalists service will continue to monitor. Discharge planning: home
[2017-12-09] MEDS: LATANOPROST 0.005% OP SOLN 2.5 ML BTL OP SCH (21:23)
[2017-12-09] MEDS: IMIPRAMINE HCL 25 MG TAB PO SCH (21:23)
[2017-12-09] MEDS: DOCUSATE SODIUM/SENNA 50/8.6MG TAB PO SCH (21:23)
[2017-12-09 22:42] VITALS: BP 110/70; PULSE 65; TEMP 36.4; O2SAT 91
[2017-12-09] MEDS: OXYCODONE HCL IR 5 MG TAB (IMMEDIATE RELEASE) PO PRN (23:58)
[2017-12-10] MEDS: POLYETHYLENE (MIRALAX) 17 GM PACK PO SCH ×4 (05:51→23:27)
[2017-12-10 05:53] VITALS: BP 116/67; PULSE 69; TEMP 36.4; O2SAT 91
[2017-12-10 06:24] LABS: HEMATOCRIT 31.6 % (37-47); HEMOGLOBIN 10.4 g/dL (12.0-16.0); MEAN CELL VOLUME 88.3 fL (80-100); MEAN CORPUSCULAR HEMOGLOBIN 29.1 pg (25-34); MEAN CORPUSCULAR HGB CONC 32.9 g/dl (32-36); MEAN PLATELET VOLUME 9.8 fL (7.4-10.4); PLATELET COUNT 199 K/uL (130-400); RED CELL DISTRIBUTION WIDTH CV 15.5 % (11.5-14.5); RED CELL DISTRIBUTION WIDTH SD 50.3 fL (36.4-46.3); WHITE BLOOD COUNT 9.99 K/uL (4.8-10.8)
[2017-12-10 06:58] LABS: CALCIUM 8.5 mg/dl (8.5-10.1); CREATININE 1.39 mg/dl (0.60-1.20); POTASSIUM 3.8 mmol/L (3.5-5.1)
[2017-12-10] MEDS: TRIAMTERENE/HCTZ 37.5/25MG CAP PO SCH (07:38)
[2017-12-10] MEDS: OXYCODONE HCL IR 5 MG TAB (IMMEDIATE RELEASE) PO PRN ×4 (07:38→23:27)
[2017-12-10] MEDS: METOPROLOL SUCC 50MG EXT REL TAB PO SCH (07:38)
[2017-12-10] MEDS: OXYBUTYNIN CHLORIDE 5 MG TAB PO SCH ×2 (07:38→20:07)
[2017-12-10] MEDS: AMLODIPINE BESYLATE 5 MG TAB PO SCH (07:39)
[2017-12-10] MEDS: MULTIVITAMIN TAB PO SCH (09:58)
[2017-12-10] MEDS: PANTOprazole SOD 40 MG TAB PO SCH (09:58)
--- NOTE | 2017-12-10 13:16 | Progress Note ---
Progress Note Date of Service Dec 10, 2017. Progress Note Patient's back pain is controlled leg symptoms markedly improved. On exam she is in the chair at the bedside is good strength testing appears comfortable assessment status post lumbar decompression fusion per plan at this time she is going to continue physical therapy and look for discharge Wednesday to rehab.
--- NOTE | 2017-12-10 15:10 | Hospitalist Progress Note ---
Hospitalist Progress Note Date of Service Dec 10, 2017. Subjective Pt evaluation today including: conversation w/ patient, conversation w/ family , physical exam, chart review, lab review, review of inpatient medication list Patient seen and evaluated. No acute events overnight. Reports she is having more pain today compared to yesterday. Is planning on rehab prior to returning home. Hemoglobin is remaining stable. Cr slightly increased today but still better than baseline. Additional Comments: REVIEW OF SYSTEMS: Constitutional: No fever, No chills Respiratory: No cough, No shortness of breath Cardiovascular: No chest pain Abdomen: No pain, No nausea, No vomiting, No diarrhea, No constipation Musculoskeletal: No swelling, No calf pain, +back pain Female : No dysuria Heme: No abnormal bleeding/bruising Medications Current Inpatient Medications Medications (Trade) Dose Ordered Sig/Eva Route Start Time Stop Time Status Last Admin Dose Admin Promethazine HCl 12.5 mg/Sodium Chloride 50.5 ml @ 202 mls/hr Q6H PRN IV 12/08/17 15:15 01/07/18 15:14 Ondansetron HCl (Zofran Inj) 4 mg Q6H PRN IV 12/08/17 15:15 01/07/18 15:14 Metoclopramide HCl (Reglan Inj) 10 mg Q6H PRN IV 12/08/17 15:15 01/07/18 15:14 Lorazepam (Ativan Tab) 0.5 mg Q8H PRN PO 12/08/17 15:15 01/07/18 15:14 Lorazepam 0.5 mg/ Syringe 0.25 ml @ 1 mls/min Q8H PRN IV 12/08/17 15:15 01/07/18 15:14 Pneumococcal Polysaccharide Vaccine 1 ea PRN PRN N/A 12/08/17 15:15 01/07/18 15:14 Influenza Virus Vacc Triv Types A&B 1 ea PRN PRN N/A 12/08/17 15:15 01/07/18 15:14 Polyethylene (Miralax Powder Packet) 17 gm Q6 PO 12/10/17 06:00 01/09/18 05:59 12/10/17 12:01 17 GM Bisacodyl (Dulcolax Supp) 10 mg DAILY PRN [place] 12/08/17 15:15 01/07/18 15:14 Magnesium Hydroxide (Milk Of Magnesia Susp) 30 ml DAILY PRN PO 12/08/17 15:15 01/07/18 15:14 Acetaminophen (Tylenol Tab) 1,000 mg Q8H PRN PO 12/08/17 15:15 01/07/18 15:14 12/09/17 21:31 1,000 MG Acetaminophen 100 ml @ 400 mls/hr Q8H PRN IV 12/08/17 15:15 01/07/18 15:14 Naloxone HCl (Narcan Inj) 0.1 mg Q5M PRN IV 12/08/17 15:15 01/07/18 15:14 Senna/Docusate Sodium (Senokot S Tab) 2 tab HS PO 12/08/17 21:00 01/07/18 20:59 12/09/17 21:23 2 TAB Sodium Biphosphate/ Sodium Phosphate (Fleet Enema) 132 ml ONE PRN [place] 12/08/17 15:15 01/07/18 15:14 Hydroxyzine HCl (Vistaril Tab) 25 mg Q8H PRN PO 12/08/17 15:15 01/07/18 15:14 Al Hydroxide/Mg Hydroxide (Maalox Susp) 30 ml Q6H PRN PO 12/08/17 15:15 01/07/18 15:14 Famotidine (Pepcid Tab) 20 mg Q12 PRN PO 12/08/17 15:15 01/07/18 15:14 Diphenhydramine HCl (Benadryl Cap) 25 mg Q6H PRN PO 12/08/17 15:15 01/07/18 15:14 Amlodipine Besylate (Norvasc Tab) 10 mg QAM PO 12/09/17 09:00 01/08/18 08:59 12/10/17 07:39 10 MG Latanoprost (Xalatan Oph Soln) 1 drops HS OP 12/08/17 21:00 01/07/18 20:59 12/09/17 21:23 1 DROPS Metoprolol Succinate (Toprol Xl Tab) 100 mg QAM PO 12/09/17 09:00 01/08/18 08:59 12/10/17 07:38 100 MG Multivitamins (Multivitamin Tab) 1 tab QAM PO 12/09/17 09:00 01/08/18 08:59 12/09/17 08:45 1 TAB Oxybutynin Chloride (Ditropan Tab) 5 mg BID PO 12/08/17 21:00 01/07/18 20:59 12/10/17 07:38 5 MG Triamterene/HCTZ (Dyazide 37.5/25 Mg Cap) 1 cap QAM PO 12/09/17 09:00 01/08/18 08:59 12/10/17 07:38 1 CAP Pantoprazole Sodium (Protonix Tab) 40 mg QAM PO 12/09/17 09:00 01/08/18 08:59 12/09/17 08:44 40 MG Hydromorphone HCl (Dilaudid Inj) 0.5-1mg prn moder... Q3H PRN IV 12/08/17 17:30 12/22/17 17:29 Oxycodone HCl (Roxicodone Immediate Rel Tab) 5-10mg prn moderate to sev... Q4H PRN PO 12/08/17 17:30 12/22/17 17:29 12/10/17 12:00 10 MG Imipramine HCl (Tofranil Tab) 50 mg HS PO 12/08/17 21:00 01/07/18 20:59 12/09/17 21:23 50 MG Objective Vital Signs Date Time Temp Pulse Resp B/P (MAP) Pulse Ox O2 Delivery O2 Flow Rate FiO2 12/10/17 07:51 Room Air 12/10/17 05:53 36.4 69 17 116/67 (83) 91 Room Air 12/09/17 23:45 Room Air 12/09/17 22:42 36.4 65 15 110/70 (83) 91 Room Air 12/09/17 15:30 Room Air 12/09/17 15:30 114/72 (86) 12/09/17 15:03 36.7 75 18 93/61 (72) 92 Room Air Physical Exam Notes: PHYSICAL EXAMINATION: General Appearance: WD/WN, no apparent distress Eyes: sclerae normal ENT: hearing grossly normal Neck: supple, no JVD, trachea midline Respiratory/Chest: lungs clear, normal breath sounds, no respiratory distress, no accessory muscle use Cardiovascular: regular rate, rhythm Abdomen: normal bowel sounds, non tender, soft Extremities: no pedal edema, no calf tenderness Neurologic/Psychiatric: alert, oriented x 3 Skin: normal color, warm/dry Laboratory Results Last 24 Hours Test 12/10/17 06:03 White Blood Count 9.99 K/uL Red Blood Count 3.58 M/uL Hemoglobin 10.4 g/dL Hematocrit 31.6 % Mean Corpuscular Volume 88.3 fL Mean Corpuscular Hemoglobin 29.1 pg Mean Corpuscular Hemoglobin Concent 32.9 g/dl RDW Standard Deviation 50.3 fL RDW Coefficient of Variation 15.5 % Platelet Count 199 K/uL Mean Platelet Volume 9.8 fL Sodium Level 138 mmol/L Potassium Level 3.8 mmol/L Chloride Level 104 mmol/L Carbon Dioxide Level 28 mmol/L Anion Gap 7.0 mmol/L Blood Urea Nitrogen 23 mg/dl Creatinine 1.39 mg/dl Est Creatinine Clear Calc Drug Dose 31.9 ml/min Estimated GFR () 41.1 Estimated GFR (Non- 35.5 BUN/Creatinine Ratio 16.8 Random Glucose 105 mg/dl Calcium Level 8.5 mg/dl Assessment and Plan 82 yo female who is hospitalized for Lumbar decompression medial facetectomy foraminotomy L2-3 L3-4 L4-5 (and other procedures noted below). Consult was called for medical management. Lumbar Decompression/Fusion on 12/08: - Pain management, PT/OT, IVF, DVT Prophylaxis, Surgical Management per primary - Reports requiring blood transfusion with knee replacement - will monitor H&H - currently stable without need for intervention HTN: STABLE - Norvasc 10 mg daily, Toprol XL 100 mg daily, Dyazide 1 tab daily Reported H/O Hyperglycemia - Normal A1c: - A1c 5.5 - can monitor with daily labs - no intervention necessary CKD Stage III: STABLE - Baseline 1.6-1.7 - Currently better than baseline at 1.3 - making urine and has good output Chronic Stress Urinary Incontinence: - Oxybutynin 5 mg BID Hospitalists service will sign off at this time. Please contact if there is any questions/concerns. Continued [facility] stay due to: inadequate oral pain control, ambulation difficulties Discharge planning: intermediate facility
[2017-12-10 16:24] VITALS: BP 122/75; PULSE 64; TEMP 37; O2SAT 94
[2017-12-10] MEDS: LATANOPROST 0.005% OP SOLN 2.5 ML BTL OP SCH (20:07)
[2017-12-10] MEDS: DOCUSATE SODIUM/SENNA 50/8.6MG TAB PO SCH (20:07)
[2017-12-10] MEDS: IMIPRAMINE HCL 25 MG TAB PO SCH (20:07)
[2017-12-10 23:14] VITALS: BP 92/58; PULSE 72; TEMP 37.2; O2SAT 91
[2017-12-11] MEDS: POLYETHYLENE (MIRALAX) 17 GM PACK PO SCH ×3 (05:28→17:50)
[2017-12-11 06:02] VITALS: BP 116/76; PULSE 70; TEMP 36.8; O2SAT 92
[2017-12-11] MEDS: MULTIVITAMIN TAB PO SCH (07:35)
[2017-12-11] MEDS: PANTOprazole SOD 40 MG TAB PO SCH (07:36)
[2017-12-11] MEDS: OXYBUTYNIN CHLORIDE 5 MG TAB PO SCH ×2 (07:36→21:18)
[2017-12-11 07:39] VITALS: BP 104/67; PULSE 72
[2017-12-11] MEDS: AMLODIPINE BESYLATE 5 MG TAB PO SCH (07:41)
[2017-12-11] MEDS: METOPROLOL SUCC 50MG EXT REL TAB PO SCH (07:41)
[2017-12-11] MEDS: TRIAMTERENE/HCTZ 37.5/25MG CAP PO SCH (07:42)
[2017-12-11] MEDS ORDERED: RXC5 PO (08:22)
--- NOTE | 2017-12-11 08:23 | Discharge Instructions ---
Discharge Instructions Date of Service Dec 11, 2017. Admission Reason for Admission: Lumbar Spinal Stenosis Discharge Discharge Diagnosis / Problem: lumbar stenosis Discharge Goals Goal(s): Improve function Activity Recommendations Activity Limitations: per Instructions/Follow-up section . Instructions / Follow-Up Instructions / Follow-Up ACTIVITY RECOMMENDATIONS: SELF CARE INSTRUCTIONS AFTER THORACIC/LUMBAR FUSIONS 1. You may walk to your tolerance. It is good exercise for your legs and back. Expect some back and intermittent leg aches and pains. 2. You may perform "counter-top" level activities (make a sandwich, emmie with a project, etc.). 3. No bending or lifting of more than 10 pounds or back twisting of any nature (roll like a log when turning in bed). 4. You may ride in a car for 20-30 minutes at a time. No driving until after your first visit with your doctor. 5. Frequent changes of position and restricting sitting to 30 minutes at a time will help limit the amount of back spasms and stiffness you may experience. 6. You may discontinue the use of ambulatory aids (cane, crutches, etc.) once your strength and confidence allow. 7. You may brain picker the shower and let water strike your incision when you arrive home at least once daily. Do not take a tub bath, sit in a hot tub or go into a swimming pool until after your first recheck in the office. SPECIAL CARE INSTRUCTIONS: VERY IMPORTANT TO READ AND REVIEW A. Your surgical incision has been closed with a cosmetic suture under the skin that will dissolve in about 6 weeks. In 14 days, you can use a pair of clean scissors and cut the suture that is left outside of the skin at the ends of your incision. 1. The small skin tapes can be removed 7 days after surgery if they have not fallen off by that point. 2. You may keep the wound open to air as much as possible to promote healing after post-op day number 5 unless told otherwise by your doctor. 3. If you think the wound looks like it is becoming infected (redness or worsening drainage) and/or you are experiencing fever, chill or worsening back pain and muscle spasms, contact the office so that we may evaluate you as soon as possible. B. Complications are uncommon, but please contact us if you have any signs or symptoms of: 1. wound infection (fever higher than 102.5 degrees F, redness, separation of wound, drainage, or increasing pain from the incision) 2. blood clots in legs (pain, swelling, redness and warmth in legs) 3. urinary tract infection (fever higher than 102.5 degrees F, burning upon urination or increased frequency of urination) 4. nerve problems (inability to walk on your toes or heels, numbness, loss of bowel or bladder control) 5. any other symptoms that concern you C. Please call the office at if you have any concerns or questions about your operation or recovery. D. No smoking! Smoking drastically decreases the chance of a solid fusion. E. Do not take any anti-inflammatory medications (Indocin, Advil, Motrin, Aspirin, Naprosyn, etc.) as these may inhibit the chance of a solid fusion. Tylenol is okay to take for pain. MANAGING PAIN AFTER SPINAL SURGERY 1. Narcotic medication is intended for short-term use and will be provided for surgical pain. Surgical pain usually lasts for a period of 4-6 weeks. Narcotic medication includes Percocet, Vicodin, Darvocet, Tylenol #3 or Lortab. 2. Longer-term pain is more appropriately treated with non-narcotic medication such as Tylenol ES. 3. Muscle spasm is not appropriately treated with narcotics. Muscle relaxers such as Soma, Flexeril or Skelaxin can be used along with Tylenol ES. 4. Remember that we all live with some "aches and pains". This is not unusual or uncommon after an injury or as we get older. a. Back pain is expected and may include muscle spasms for 4 to 6 weeks after surgery. The pain should gradually improve. If the pain worsens for no apparent reason, please contact the office. b. Intermittent leg pain may also be experienced and should not be concerned about unless it worsens for no apparent reason. If so, please contact the office. 5. We will provide appropriate medication within the normal guidelines of their prescribed use. We will also be very cautious and aware of potential abuse and extended duration of patients' medication needs. a. Pain medications are for your comfort and to assist with sleep and rest so that the tissue can heal. They are not provided in order to return to normal activity and should not be used through the day. To do so or worsening pain at night can result from ongoing tissue damage and development of tolerance to the prescribed medicine. 6. Please allow 2-3 days to process refills. Prescriptions will not be mailed but must be picked up at the office. FOLLOW UP VISIT: Keep your scheduled follow-up appointment. Any questions, please call the office at . Current Hospital Diet Patient's current hospital diet: Regular Diet Discharge Diet Recommended Diet: Regular Diet Procedures Procedures Performed: 1. Lumbar decompression medial facetectomy foraminotomy L2-3 L3-4 L4-5.#2 posterior spinal fusion L2-3 L3-4 L4-5. #3 placement posteriorsegmental instrumentation L2-3 L3-4 L4-5. #4 placement of local autograftin the posterior gutters. #5 placement of infuse collagen sponge combinedwith mass graft in the posterior lateral gutters. Pending Studies Studies pending at discharge: no Medical Emergencies . Who to Call and When: Medical Emergencies: If at any time you feel your situation is an emergency, please call 911 immediately. . Non-Emergent Contact Non-Emergency issues call your: Primary Care Provider . "Provider Documentation" section prepared by Servando Umana. .
--- NOTE | 2017-12-11 08:56 | Progress Note ---
Progress Note Date of Service Dec 11, 2017. Progress Note Patient's back pain is controlled leg symptoms markedly improved. She is ambulating comfortably with a walker. Vital signs stable. On exam she is good strength testing. Assessment status post lumbar decompression fusion per plan at this time she is ready for discharge to rehab facility when bed available and we have received insurance approval. That can be as soon as today. I have made her discharge in case that occurs.
[2017-12-11] MEDS: OXYCODONE HCL IR 5 MG TAB (IMMEDIATE RELEASE) PO PRN ×3 (09:29→18:05)
[2017-12-11 15:24] VITALS: BP 107/68; PULSE 68; TEMP 36.7; O2SAT 95
[2017-12-11] MEDS: LATANOPROST 0.005% OP SOLN 2.5 ML BTL OP SCH (21:17)
[2017-12-11] MEDS: IMIPRAMINE HCL 25 MG TAB PO SCH (21:18)
[2017-12-11] MEDS: DOCUSATE SODIUM/SENNA 50/8.6MG TAB PO SCH (21:18)
[2017-12-11 23:14] VITALS: BP 121/83; PULSE 70; TEMP 36.7; O2SAT 92
[2017-12-12] MEDS: POLYETHYLENE (MIRALAX) 17 GM PACK PO SCH ×3 (00:17→12:00)
[2017-12-12 06:39] VITALS: BP 114/70; PULSE 91; TEMP 36.6; O2SAT 91
[2017-12-12] MEDS: OXYCODONE HCL IR 5 MG TAB (IMMEDIATE RELEASE) PO PRN ×2 (08:46→13:55)
[2017-12-12] MEDS: OXYBUTYNIN CHLORIDE 5 MG TAB PO SCH ×2 (08:47→21:19)
[2017-12-12] MEDS: MULTIVITAMIN TAB PO SCH (08:48)
[2017-12-12] MEDS: PANTOprazole SOD 40 MG TAB PO SCH (08:48)
[2017-12-12] MEDS: TRIAMTERENE/HCTZ 37.5/25MG CAP PO SCH (08:48)
[2017-12-12] MEDS: METOPROLOL SUCC 50MG EXT REL TAB PO SCH (08:49)
[2017-12-12] MEDS: AMLODIPINE BESYLATE 5 MG TAB PO SCH (08:49)
--- NOTE | 2017-12-12 10:50 | Progress Note ---
Progress Note Date of Service Dec 12, 2017. Progress Note Patient's back pain is controlled leg symptoms markedly improved vital signs stable. On exam she is in the chair at bedside is good strength testing is quite comfortable. Assessment status post lumbar decompression fusion per plan at this time she is scheduled for DC tomorrow to retirement.
[2017-12-12] MEDS ORDERED: NURSING VERBAL MED ORDER ONE (12:30)
[2017-12-12 15:29] VITALS: BP 113/72; PULSE 72; TEMP 36.6; O2SAT 95
[2017-12-12] MEDS: LATANOPROST 0.005% OP SOLN 2.5 ML BTL OP SCH (21:17)
[2017-12-12] MEDS: DOCUSATE SODIUM/SENNA 50/8.6MG TAB PO SCH (21:19)
[2017-12-12] MEDS: IMIPRAMINE HCL 25 MG TAB PO SCH (21:20)
[2017-12-12 22:57] VITALS: BP 115/73; PULSE 75; TEMP 36.5; O2SAT 93
[2017-12-13 06:41] VITALS: BP 92/67; PULSE 74; TEMP 36.9; O2SAT 94
[2017-12-13] MEDS: MULTIVITAMIN TAB PO SCH (07:29)
[2017-12-13] MEDS: OXYBUTYNIN CHLORIDE 5 MG TAB PO SCH (07:29)
[2017-12-13] MEDS: TRIAMTERENE/HCTZ 37.5/25MG CAP PO SCH (07:29)
[2017-12-13] MEDS: PANTOprazole SOD 40 MG TAB PO SCH (07:30)
[2017-12-13] MEDS: AMLODIPINE BESYLATE 5 MG TAB PO SCH (07:30)
[2017-12-13] MEDS: METOPROLOL SUCC 50MG EXT REL TAB PO SCH (07:30)
[2017-12-13 08:54] VITALS: BP 92/67; PULSE 74; TEMP 36.9; O2SAT 94
[2017-12-13] MEDS: OXYCODONE HCL IR 5 MG TAB (IMMEDIATE RELEASE) PO PRN (09:19)
[2017-12-13 09:24] VITALS: BP 92/67; PULSE 74; TEMP 36.9; O2SAT 94
--- NOTE | 2017-12-13 15:53 | Discharge Summary ---
Orthopedic Discharge Summary Admission Date/Reason Dec 08, 2017 at 12:55 Lumbar Spinal Stenosis. Discharge Date/Disposition Dec 13, 2017 detention facility Diagnosis Principal Diagnosis: Severe multilevel spinal stenosis Admission Physical Exam As per Admitting History & Physical. Hospital Course Patient underwent lumbar decompression fusion tolerated this well was taken to the orthopedic floor postoperatively. Postop day #1 she was up and ambulatory progress the postop day #2 postop day #3 was approved for rehab facility however they were not able to accept her through the end of the weekend. Subsequently she stayed with us throughout the weekend working with therapy improving on a daily basis. She was subsequently discharged home on Wednesday. Discharge orders and instructions can be found chart for further review. Discharge Instructions Please refer to the electronic Patient Visit Report (Discharge Instructions) for additional information.
== END 2017-12-13 14:21 | DRG 460 ==
LOC: C.ACU 11:28 → C.3E 12:55 → ENRESERV 16:05
PROVIDERS: ADMIT Orthopaedic Surgery Orthopaedic Surgery of the Spine; ATTEND Orthopaedic Surgery Orthopaedic Surgery of the Spine
PROC: 3E0U0GB Introduction of Recombinant Bone Morphogenetic Protein into Joints, Open Approach (ICD-10-PCS; principal; 2017-12-08 13:45)
PROC: 0SG1071 Fusion of 2 or more Lumbar Vertebral Joints with Autologous Tissue Substitute, Posterior Approach, Posterior Column, Open Approach (ICD-10-PCS; principal; 2017-12-08 13:45)
DX: M48.062 Spinal stenosis, lumbar region with neurogenic claudication (principal); M48.061 Spinal stenosis, lumbar region without neurogenic claudication; Z88.5 Allergy status to narcotic agent; Z88.0 Allergy status to penicillin; Z88.8 Allergy status to other drugs, medicaments and biological substances; Z91.040 Latex allergy status; I12.9 Hypertensive chronic kidney disease with stage 1 through stage 4 chronic kidney disease, or unspecified chronic kidney disease; E78.5 Hyperlipidemia, unspecified; N18.9 Chronic kidney disease, unspecified; R73.9 Hyperglycemia, unspecified; N39.3 Stress incontinence (female) (male)

== ENCOUNTER 2021-10-09 06:52 | Observation (INO) ==
--- NOTE | 2021-10-06 15:51 | Anesthesiology Consultation ---
Date of Service October 06, 2021 Assessment & Plan (1) Encounter for pre-operative examination: - COVID screening: Per assessment on 10/02: No known COVID-19 positive contacts or current COVID-19 related symptoms. Travel screen negative. Patient vaccinated. Surgeon arranging preop COVID testing. Awaiting results. - S/P L2-L5 decompression/fusion (12/08/17): Grade 2 view, MAC#3, ETT 7.5 at [facility]. No issues per post-op anesthesia progress notes. Chart Review Chart Review: Acceptable Risk for Surgery (pending evaluation AM DOS) and Patient NOT seen in Pre Admission Testing History Surgery Operation Date: 10/09/21 09:45 Proposed Procedures p Open Repair Incarcerated Umbilical and - Morro Power MD, FACS s Incisional Hernia with Mesh - Morro Power MD, FACS Height/Weight Height: 5 ft 1 in Weight: 80.286 kg Allergies Allergy/AdvReac Type Severity Reaction Status Date / Time tramadol Allergy Severe Chest Verified 10/06/21 15:46 pain, syncope, "difficulty pain" latex Allergy Unknown Rash, Verified 10/06/21 15:46 blisters Penicillins Allergy Unknown FAMILY HX Verified 10/06/21 15:46 (NEVER TAKEN) lisinopril AdvReac Intermediate Cough Verified 10/06/21 15:46 Medications Home Medications Medication Instructions Recorded Confirmed Last Taken amlodipine 10 mg tablet 10 mg PO QAM 07/22/21 10/02/21 Unknown calcium carbonate 600 mg-vitamin 1 tab PO BID 07/22/21 10/02/21 Unknown D3 10 mcg (400 unit) tablet (Calcium with Vitamin D) duloxetine 60 mg capsule,delayed 60 mg PO HS 07/22/21 10/02/21 Unknown release latanoprost 0.005 % eye drops 1 drp OPHTHALMIC (EYE) QA 07/22/21 10/02/21 Unknown levothyroxine 75 mcg capsule 75 mcg PO QAM 07/22/21 10/02/21 Unknown meloxicam 7.5 mg tablet 7.5 mg PO QAM 07/22/21 10/02/21 Unknown metoprolol tartrate 100 mg tablet 100 mg PO QAM 07/22/21 10/02/21 Unknown multivitamin (Daily Multi-Vitamin) 1 tab PO QAM 07/22/21 10/02/21 Unknown omeprazole 20 mg capsule,delayed 20 mg PO QAM 07/22/21 10/02/21 Unknown release oxybutynin chloride 5 mg tablet 5 mg PO BID 07/22/21 10/02/21 Unknown triamterene 37.5 1 tab PO QAM 07/22/21 10/02/21 Unknown mg-hydrochlorothiazide 25 mg tablet Past Medical History Medical History Chronic kidney disease GERD (gastroesophageal reflux disease) Hypertension Hypothyroidism Past Family History Family History Mother Breast cancer Diabetes Hypertension Father Cancer Diabetes Hypertension Sister Diabetes Hypertension Past Surgical History Surgical History History of back surgery (12/08/17) Compression/fusion History of bilateral tubal ligation History of cataract surgery (~2015) History of Shahrzad fundoplication (03/13/05) Laparoscopic Shahrzad fundoplication, repair of paraesophagealhernia, and cholecystectomy. Dr. Power and Dr. Lanier Hx of hysterectomy (12/26/04) Total abdominal hysterectomy, bilateral salpingo-oopherectomy S/P carpal tunnel release R/L S/P knee replacement Social History Smoking Status: Never smoker Do You Dip or Chew Tobacco: No Hx Alcohol Use: No Hx Substance Use: No substance use type: does not use Lab Results Anesthesia Preop Results Results Anesthesia Widget: WBC 7.36 K/uL (4.8-10.8) 10/02/21 Hgb 13.2 g/dL (12.0-16.0) 10/02/21 Hct 39.8 % (37-47) 10/02/21 Plt 301 K/uL (130-400) 10/02/21 Na 138 mmol/L (136-145) 10/02/21 K 3.9 mmol/L (3.5-5.1) 10/02/21 Cl 100 mmol/L (98-107) 10/02/21 CO2 30 mmol/L (21-32) 10/02/21 BUN 27 mg/dl (6-23) H 10/02/21 Creat 1.34 mg/dl (0.6-1.2) H 10/02/21 Glucose Level 92 mg/dl (70-99(Fasting)) 10/02/21 Testing Electrocardiogram Date: 10/06/21 NSR at 62bpm. LAD. Possible anterolateral infarct, age undetermined. Chest X-Ray Date: 10/06/21 No lines and tubes are seen. Calcified aortic knob is seen. The lungs are clear. No evidence of pleural effusion or pneumothorax. Degenerative changes in the spine. Posterior fixation hardware is noted. IMPRESSION: No acute chest disease.
[~2021-10-09 06:52] MED LIST changes: -ACET-1256 PO; -ACETAMINOPHEN 500 MG TAB PO SCH; -AMLO10TA3 PO; -ATROPINE SULFATE 0.1 MG/ML 5ML SYR IV PRN; -CALC600T9 PO; -CLINDAMYCIN IV 600 MG in DEXTROSE 5% ADD-VANTAGE 50ML 50 ML IV SCH; -CLINDAMYCIN PHOS 150 MG/ML 2 ML VIAL IV SCH; -CeleBREX 200 MG CAP PO SCH; -DTR/5 PO; -EpHEDrine SULFATE INJ 50 MG/ML AMP IV PRN; -FENTANYL CITRATE INJ 50 MCG/1 ML 2 ML VIAL IV PRN; -GABAPENTIN 300 MG CAP PO SCH; -HYDROmorphone INJ 0.5 MG/0.5 ML SYR IV PRN; -IMP/50 PO; -LACTATED RINGER'S 1000ML 1,000 ML IV SCH; -LATA0.009 OP; +LR 15ML/HR IV SCH; -METO100T44 PO; -MULTTAB58 PO; -NAPR1TAB9 PO; -OMEP20TA PO; -ONDANSETRON INJ 2 MG/ML 2 ML VIAL IV PRN; -PHENYLEPHRINE 100MCG/ML 5ML SYR IV PRN; -PYRI100T4 PO; -TRIA37.5 PO
--- NOTE | 2021-10-09 08:18 | History & Physical Bridge Note ---
Date of Service October 09, 2021 History & Physical Bridge Note I have examined the patient, reviewed the History & Physical and in the interval since the performance of the History & Physical I have noted the following changes of clinical significance: no changes noted Since last seen patient continues to have some abdominal pain around the area no vomiting Significant other at bedside patient marked admit order written all question answered
[2021-10-09] MEDS ORDERED: fentaNYL citrate 100 MCG/2 ML VIAL ONE (08:20)
[2021-10-09] MEDS ORDERED: BUPIVACAINE 0.5 % 5 MG/1 ML MPF 30ML VIAL ONE (08:22)
[2021-10-09] MEDS ORDERED: ONDANSETRON INJ 2 MG/ML 2 ML VIAL IV PRN ×2 (08:33→11:32)
[2021-10-09] MEDS ORDERED: ATROPINE SULFATE 0.1 MG/ML 10ML SYR IV PRN (08:33)
[2021-10-09] MEDS ORDERED: ceFAZolin 330 MG/ML 1 GM VIAL ONE (08:52)
[2021-10-09] MEDS ORDERED: PROPOFOL IV EMULSION 10 MG/ML 20 ML VIAL IV ONE (08:52)
[2021-10-09] MEDS ORDERED: DEXAMETHASONE SOD INJ 4 MG/ML VIAL ONE (08:53)
[2021-10-09] MEDS ORDERED: ONDANSETRON INJ 2 MG/ML 2 ML VIAL ONE (08:53)
[2021-10-09] MEDS ORDERED: ceFAZolin 2000MG 2,000 MG/15 ML SYR IV ONE (09:08)
--- NOTE | 2021-10-09 09:57 | Post Operative Brief Note ---
PG Immediate Post Op with CF Date of Surgery October 09, 2021 Pre & Post Diagnosis Operation Date: 10/09/21 08:35 Pre-Op Diagnosis: Umbilical Hernia Incarcerated, Incisional Hernia Post-Op Diagnosis: Umbilical Hernia Incarcerated, Incisional Hernia I identified the patient and participated in the time-out.: Yes Procedure Operation Date: 10/09/21 08:35 Actual Procedures p Open Repair Incarcerated Umbilical and Incsional Hernias with Mesh(Not Applicable) - Morro Power MD, FACS Surgeon Morro Power MD, FACS Senior Controller wanda garzon Estimated Blood Loss 35 Findings Consistent with Post-Op Diagnosis Specimens Specimen Description: Permanent Specimen: A) Incarcerated Omentum Drains Pandya Catheter and Jj-Florence Drain
--- NOTE | 2021-10-09 10:08 | Operative Report ---
PG Post Operative Report Pre & Post Diagnosis Operation Date: 10/09/21 08:35 Pre-Op Diagnosis: Umbilical Hernia Incarcerated, Incisional Hernia Post-Op Diagnosis: Umbilical Hernia Incarcerated, Incisional Hernia I identified the patient and participated in the time-out.: Yes Procedure Operation Date: 10/09/21 08:35 Actual Procedures p Open Repair Incarcerated Umbilical and Incsional Hernias with Marlex Mesh Reinforcement(Not Applicable) - Morro Power MD, FACS Patient was brought into the operating theater general trach anesthesia supine position abdomen was prepped byline scrub a solution properly draped after Pandya catheter been placed systemic antibiotics on board patient identified timeout was had this we made an incision starting above and lateral on the left to the umbilical protrusion deepened through subcutaneous tissue to the point that she had very little subcutaneous tissue and we entered the linea alba on the umbilical area once we entered the abdomen we found omentum that was incarcerated in the umbilical crater were able to reduce this then as we continue to codad open the skin and subcutaneous tissue we entered the peritoneal cavity large amount of adhesions with Incorporated think omentum was stuck in multiple areas of the superior incision multiple herniations were then freed up we needed to resect part of the incarcerated omentum which we did divided between hemostats and ligated with 2-0 silk once we had freed all this up and entered the abdomen there were no more adhesions identified circumferentially we palpated towards the symphysis pubis there was no other defects. Using electrocautery we done grasped the fascia on both sides towards the midline and scored the subcutaneous tissue from the abdominal wall fascia all the way towards the edge of the rectus although she had a very small rectus muscle that we could hardly delineate the edge having said that she felt a little bit tight and closing primarily the abdominal wall fascia therefore we scrolled on the left side similarly into the right to the point that we had enough free and tension-free that we can close the midline without any significant tension mostly was done by scoring the subcutaneous tissue from the abdominal wall to the edges of both rectus laterally we did not do a compartment separation. At this point we used #1 PDS to close the continuous fashion starting at 12:00 and 1 at 6:00 and tying in the middle of this was done in a running taken about 5 mm bites of the fascia once this had been completed I decided to reinforce that whole area by bringing on the field a 6 x 6 Marlex mesh we put it at pull her stitches with 2-0 silk to 12 3 6 and 9 o'clock position to outline the position of the mesh with circumferentially overlapped initial repair by 3 to 4 cm circumferentially. We then used a 2-0 Prolene suture starting at 3:00 taken towards the 12:00 o'clock then tying it at 9:00 then we start another 1 from 3:00 to 9:00 going towards the 6:00 area this lady loosely on the abdominal wall fascia we then closed some interrupted sutures to approximate the primary closure of the fascia tacking down the mesh onto that with interrupted 2-0 Prolene suture the area was checked for stasis appears satisfactory we then took off some of the fine skin especially umbilical area and which was very thin freshen up the edges of both sides of the incision to the point that any residual weakness of the abdominal wall in the subcutaneous tissue to the fascia was removed we then placed a 19 Roman drain through stab wounds her right lower quadrant area placed anterior to the mesh tied to the skin with 2-0 silk we then closed the subcutaneous tissue with interrupted suture taking bites of the subcutaneous tissue laterally tying it onto the mesh this was done specially by 5 or 6 time. Then we ran a 2-0 Vicryl suture subcutaneously there was no real tension on the skin we freshened up any area of the skin that needed to be realigned then we closed the skin using harika a dressing was applied procedure was tolerated well by the patient estimated blood loss 30 cc Addendum Nina garzon was present throughout the procedure and helped the retraction exposure and wound closure Spoke with her Rosio at [phone] Surgeon Morro Power MD, FACS Manager [employer] nina garzon Estimated Blood Loss 30 Findings Consistent with Post-Op Diagnosis Incarcerated umbilical and incisional hernia Specimens Incarcerated omentum Drains 19 Roman subcutaneous Indications Abdominal pain with intermittent incarceration of the abdominal incision Description of Procedure merda I attest to the content of the Intraoperative Record and any orders documented therein. Any exceptions are noted below.
[2021-10-09] MEDS ORDERED: NEOSTIGMINE METHYLSULFATE 1 MG/ML 10ML VIAL ONE (10:23)
[2021-10-09] MEDS ORDERED: GLYCOPYRROLATE 0.2 MG/ML VIAL ONE (10:23)
[2021-10-09] MEDS ORDERED: ROCURONIUM BROMIDE 10 MG/ML 5 ML VIAL IV ONE (10:23)
[2021-10-09] MEDS: fentaNYL citrate 100 MCG/2 ML VIAL IV PRN ×8 (10:29→11:05)
[2021-10-09] MEDS ORDERED: HYDROmorphone INJ 1 MG/ML SYRINGE IV PRN (11:17)
--- NOTE | 2021-10-09 11:17 | Anesthesiology Progress Note ---
Date of Service October 09, 2021 Anesthesia Post Procedure Vital Signs Vital Signs: Temp Pulse Resp BP Pulse Ox 10/09/21 11:15 36.6 C 62 15 114/88 954 H 10/09/21 11:05 64 12 139/66 91 10/09/21 10:55 61 15 135/73 93 10/09/21 10:45 60 15 122/63 99 10/09/21 10:35 59 L 15 129/48 L 99 10/09/21 10:25 58 L 16 131/72 100 10/09/21 10:17 36.2 C L 81 12 156/71 H 95 10/09/21 07:33 36.8 C 61 20 153/74 H 97 Pain Intensity Abdomen: Pain Intensity: 5 Transfer of Care Handoff Completed per policy Notes Mental Status: alert / awake / arousable Patient Amnestic to Procedure: Yes Nausea / Vomiting: adequately controlled Pain: adequately controlled Airway Patency, RR, SpO2: stable & adequate BP & HR: stable & adequate Hydration State: stable & adequate Anesthetic Complications: no major complications apparent
[2021-10-09] MEDS: LACTATED RINGER'S 1,000 ML IV SCH (11:30)
[2021-10-09] MEDS ORDERED: MoRPHine SULFATE 4 MG/ML 1 ML CARP\\VIAL IV PRN (11:32)
[2021-10-09] MEDS ORDERED: MoRPHine SULFATE 2 MG/ML CARP IV PRN (11:32)
[2021-10-09] MEDS ORDERED: oxyCODONE/ACETAMINOPHEN 5mg/325mg TAB PO PRN ×2 (11:32)
[2021-10-09] MEDS: ceFAZolin 2000MG 2,000 MG/15 ML SYR IV SCH (15:57)
[2021-10-09] MEDS: ACETAMINOPHEN 325 MG TAB PO PRN ×2 (16:01→20:20)
[2021-10-09] MEDS: CALCIUM 600MG + VIT D 400 IU TAB PO SCH (20:20)
[2021-10-09] MEDS: OXYBUTYNIN CHLORIDE 5 MG TAB PO SCH (20:20)
[2021-10-10] MEDS: ceFAZolin 2000MG 2,000 MG/15 ML SYR IV SCH ×2 (01:13→08:48)
[2021-10-10] MEDS: ACETAMINOPHEN 325 MG TAB PO PRN ×2 (03:41→08:48)
[2021-10-10] MEDS: LACTATED RINGER'S 1,000 ML IV SCH (06:03)
[2021-10-10 06:20] LABS: Basophils # (auto) 0.01 K/uL (0-0.2); Basophils % (auto) 0.1 %; Eosinophils # (auto) 0.01 K/uL (0-0.5); Eosinophils % (auto) 0.1 %; Hematocrit (blood only) 38.3 % (37-47); Hemoglobin 12.7 g/dL (12.0-16.0); Immature Granulocytes # (auto) 0.01 K/uL (0.00-0.02); Immature Granulocytes % (auto) 0.1 %; Lymphocytes # (auto) 1.62 K/uL (1.2-3.4); Lymphocytes % (auto) 16.4 %; Mean Corpuscular Hemoglobin 29.7 pg (25-34); Mean Corpuscular Hgb Conc 33.2 g/dL (32-36); Mean Corpuscular Volume 89.5 fL (80-100); Monocytes # (auto) 0.82 K/uL (0.11-0.59); Monocytes % (auto) 8.3 %; Neutrophils # (auto) 7.38 K/uL (1.4-6.5); Platelet Count 244 K/uL (130-400); RDW Coefficient of Variation 14.1 % (11.5-14.5); RDW Standard Deviation 46.4 fL (36.4-46.3); Red Blood Count 4.28 M/uL (4.2-5.4); White Blood Count 9.85 K/uL (4.8-10.8)
--- NOTE | 2021-10-10 06:28 | Surgery Progress Note ---
Date of Service October 10, 2021 Assessment & Plan (1) Hernia, incisional: Plan: POD#1 status post open repair incarcerated umbilical incisional hernia with Marlex mesh onlay Discussed with the patient the operative findings and the operation At this point we will advance her diet and if she tolerates that and oral analgesics sufficient for pain control she can be discharged We will remove the Pandya catheter No lifting greater than 10 pounds for a week no driving until we see her she can take the dressing off she can shower no need to reapply dressing on the incision unless it bothers her close With follow-up in the office in approximately 1 week We will remove the Roman drain before she is discharged (2) Umbilical hernia, incarcerated: Admission and Anticipated Discharge Date Admission Date: October 09, 2021 Subjective She feels fine no nausea tolerated liquids well has been up and side of the bed without any discomfort states really does not need anything for pain Physical Exam Physical Exam: Alert coherent resting comfortably in bed The abdomen is soft the dressing intact dry Roman drainage serosanguineous 50 cc overnight Results & Data ([facility]) Vital Signs (Past 12 Hours) Vital Signs Temp Pulse Resp BP Pulse Ox 10/10/21 03:51 37 C 65 18 147/79 H 94 10/09/21 22:17 36.5 C 63 18 122/73 95 10/09/21 20:00 36.5 C 63 20 137/77 95 PG Care Time/CCT Total # of Minutes Spent Total Time Spent with Patient: Total time spent is greater than 50% in coordination of care (as documented) at patient's floor/unit and/or counseling patient: Coding Level of Care Code None Diagnoses Hernia, incisional K43.2 Umbilical hernia, incarcerated K42.0
[2021-10-10] MEDS ORDERED: LEVOTHYROXINE SODIUM 75 MCG TABLET PO SCH (06:30)
[2021-10-10 06:49] LABS: BUN Creatinine Ratio 20.9 (10-20); Calcium 9.2 mg/dl (8.5-10.1); Creatinine Clr Calc Pharmacy 35.7 ml/min; Est GFR (Non-African American) 45.7 ml/min; Potassium 3.7 mmol/L (3.5-5.1)
[2021-10-10] MEDS: OXYBUTYNIN CHLORIDE 5 MG TAB PO SCH (08:42)
[2021-10-10] MEDS: CALCIUM 600MG + VIT D 400 IU TAB PO SCH (08:42)
[2021-10-10] MEDS ORDERED: DULoxetine HCL 60 MG CAP PO SCH (09:00)
[2021-10-10] MEDS ORDERED: LATANOPROST 0.005% OP SOLN 2.5 ML BTL OP SCH (09:00)
[2021-10-10] MEDS ORDERED: PANTOprazole 40 MG TAB PO SCH (09:00)
[2021-10-10] MEDS ORDERED: MULTIVITAMIN TAB PO SCH (09:00)
[2021-10-10] MEDS ORDERED: METOPROLOL TARTRATE 100 MG TAB PO SCH (09:00)
[2021-10-10] MEDS ORDERED: MELOXICAM 7.5 MG TAB PO SCH (09:00)
[2021-10-10] MEDS ORDERED: amLODIPine BESYLATE 5 MG TAB PO SCH (09:00)
[2021-10-10] MEDS ORDERED: TRIAMTERENE/HCTZ 37.5/25MG TAB PO SCH (09:00)
--- NOTE | 2021-10-14 08:00 | Discharge Summary ---
Date of Service October 14, 2021 Principal Diagnosis Incisional hernia Discharge Exam Constitutional WD/WN, vitals as above Gastrointestinal (Abdomen) Inspection/Auscultation: + abdominal surgical incision (clean, dry) Percussion/Palpation: abdomen soft Discharge Data Allergies Allergy/AdvReac Type Severity Reaction Status Date / Time tramadol Allergy Severe Chest Verified 10/09/21 07:26 pain, syncope, "difficulty pain" latex Allergy Unknown Rash, Verified 10/09/21 07:26 blisters Penicillins Allergy Unknown FAMILY HX Verified 10/09/21 07:26 (NEVER TAKEN) lisinopril AdvReac Intermediate Cough Verified 10/09/21 07:26 Procedures Performed Operation Date: 10/09/21 08:35 Actual Procedures p Open Repair Incarcerated Umbilical and Incsional Hernias with Marlex Mesh Re inforcement(Not Applicable) - Morro Power MD, FACS Hospital Course (1) Hernia, incisional: 86 y/o female with incisional hernia was taken to the operating room for hernia repair with mesh. She was transferred to the surgical floor for observation. In the morning she was able to advance diet. She was having minimal pain. Roman drain was removed. She was stable for discharge home. Total Time Total Time Spent Total Time Spent (In Minutes): 15 Discharge Plan Discharge Items Patient Disposition: Home - Self-Care Reason For Visit: Umbilical Hernia Incarcerated, Incisional Hernia Discharge Diagnosis: umbilical and incisional hernia repair Activity: Per Instructions section Lifting: No more than 10 pounds Bathing Comment: may shower starting 10/10/21; no soaking in tubs/pools Exercise/Sports: Wait until after follow-up appointment Driving/Machine Use: wait until cleared by surgeon Non-emergency contact: Surgeon Call non-emergency contact if: you have any medication questions, your symptoms worsen, your pain is not controlled, your pain is concerning for you, you have a fever, your temperature is above 101.5, your wound has increased redness, your wound has increased drainage and your wound pain has increased Follow-up/Referrals: Morro Power MD, FACS [Surgeon] - 10/17/21 10:25 am (Please call to schedule follow up in clinic within 1 week) Caleb Pollack MD [Primary Care Provider] - Diet: Regular Addtl Attending Provider Instructions: You may purchase Tylenol over the counter if needed for pain control. Tylenol 650mg orally every 4-6 hours, as needed for pain. Do not exceed >3grams of Acetaminophen within a 24 hour time period. You have surgical harika that will be removed at one of your follow up appointment. You may leave the incision open to air unless it bothers your clothes You may place a dry gauze dressing over the site where your drain was and change it daily until it is healed and no longer draining fluid. Pending Studies at Discharge: No Stand-Alone Forms: My [facility] Medications and DC Order Prescriptions: Continued metoprolol tartrate 100 mg tablet 100 mg PO QAM RF: 0 omeprazole 20 mg capsule,delayed release(DR/EC) 20 mg PO QAM RF: 0 triamterene-hydrochlorothiazid 37.5-25 mg tablet 1 tab PO QAM RF: 0 oxybutynin chloride 5 mg tablet 5 mg PO BID RF: 0 amlodipine 10 mg tablet 10 mg PO QAM RF: 0 meloxicam 7.5 mg tablet 7.5 mg PO QAM RF: 0 duloxetine 60 mg capsule,delayed release(DR/EC) 60 mg PO DAILY RF: 0 levothyroxine 75 mcg capsule 75 mcg PO QAM RF: 0 latanoprost 0.005 % drops 1 drp ophthalmic (eye) QAM RF: 0 multivitamin [Daily Multi-Vitamin] Tablet 1 tab PO QAM RF: 0 calcium carbonate-vitamin D3 [Calcium with Vitamin D] 600 mg-10 mcg (400 unit) tablet 1 tab PO BID RF: 0 Discharge Orders: Discharge Order (Routine); Ordered 10/10/21 Ordered By: Princess Pruitt/Other Patient Handouts: Abdomen Surg Dc Admission Data Admit Date/Time: 10/09/21 10:20 Attending Provider: Morro Power Admit Provider: Morro Power Primary Care Provider: Caleb Pollack Other Interventions: Discharge Summary Assessment (RN) Last Done: 10/10/21 10:29 Coding Level of Care Code D/C DAY MANAGEMENT <30 MINS Diagnoses Hernia, incisional K43.2
== END 2021-10-10 13:32 | disposition home or self-care (01) | DRG 355 ==
LOC: ASU 06:52 → INTOOBSV 10:20 → PACUINP 10:20 → 3E 14:47